=== PATIENT | male | born 1950 | race Caucasian/White ===

== ENCOUNTER 2021-11-21 13:15 | Inpatient (IN) | payer MEDICARE, OTHER ==
[2021-11-21 13:53] LABS: #Eosinphils 0.1 10x3/uL (0.0-0.5); #Monocytes 1.3 10x3/uL (0.0-1.1); #Neutrophils 7.9 10x3/uL (1.5-8.4); %Basophils 0.3 % (0.0-2.0); %Eosinophils 0.5 % (0.0-6.0); %Lymphocytes 14.5 % (18.0-47.0); %Monocytes 11.5 % (0.0-10.0); %Neutrophils 72.6 % (40.0-75.0); Hemoglobin 15.5 g/dL (13.5-17.5); Mean Corpuscular HGB CONC 33.2 g/dL (32.0-36.0); Mean Corpuscular Hemoglobin 32.6 pg (27.0-33.0); Mean Corpuscular Volume 98.3 fl (81.2-95.1); Mean Platelet Volume 10.6 fl (7.4-10.4); Platelet Count 88 10x3/uL (150-450); RBC Distribution Width 12.9 % (11.5-14.5); Red Blood Cell (RBC) Count 4.75 10x6/uL (4.32-5.72)
[2021-11-21 14:02] LABS: ALT (SGPT) 11 U/L (8-55); AST (SGOT) 15 U/L (5-34); Albumin 3.5 g/dL (3.4-4.8); Alkaline Phosphatase 99 U/L (40-110); Anion Gap 13 mmol/L (10-20); BUN (Urea Nitrogen) 14 mg/dL (8.4-25.7); Bilirubin, Total 1.3 mg/dL (0.2-1.2); CRP (Inflammatory) 6.35 mg/dL (= or < 0.5); Calc. Creatinine Clearance 0 mL/min (70-130); Calcium 9.4 mg/dL (7.8-10.44); Carbon Dioxide 30 mmol/L (23-31); Chloride 101 mmol/L (98-107); Globulin 2.8 g/dL (2.4-3.5); Glucose 107 mg/dL (80-115); Potassium 4.7 mmol/L (3.5-5.1); Protein, Total 6.3 g/dL (5.8-8.1); Sodium 139 mmol/L (136-145)
[2021-11-21] MEDS ORDERED: Cefepime 2 GM VIAL ONE (14:47)
[2021-11-21] MEDS ORDERED: Ondansetron ODT 4 MG TAB PO PRN (19:14)
[2021-11-21] MEDS ORDERED: Guaifenesin DM 100-10/5 ML UDCUP PO PRN (19:14)
[2021-11-21] MEDS ORDERED: Nicotine 14 MG PATCH TD PRN (19:14)
[2021-11-21] MEDS ORDERED: Acetaminophen 325 MG TAB PO PRN (19:14)
[2021-11-21] MEDS ORDERED: hydrALAZINE 20 MG/ML VIAL SLOW IVP PRN (19:19)
[2021-11-21] MEDS ORDERED: Albuterol Sulfate 2.5 mg/3 ml Neb NEB PRN (19:22)
[2021-11-21] MEDS ORDERED: traMADol HCl 50 MG TAB PO PRN (19:24)
[2021-11-21] MEDS ORDERED: Electrolyte Replacement Protocol 1 EACH FS SCH (19:30)
[2021-11-21 19:31] VITALS: BMI 44.3
[2021-11-21] MEDS ORDERED: Loratadine 10 MG TAB PO PRN (19:34)
[2021-11-21] MEDS ORDERED: Morphine 4 MG/ML VIAL SLOW IVP PRN (19:34)
[2021-11-21] MEDS ORDERED: Vancomycin HCl 1 GM in Sodium Chloride 0.9% 250 ML 250 ML IVPB SCH (19:45)
[2021-11-22] MEDS ORDERED: Vancomycin 1 GM in Premix Bag 1 BAG IVPB SCH (04:00)
[2021-11-22 05:09] LABS: #Eosinphils 0.2 10x3/uL (0.0-0.5); #Monocytes 1.1 10x3/uL (0.0-1.1); %Basophils 0.4 % (0.0-2.0); %Eosinophils 1.7 % (0.0-6.0); %Lymphocytes 19.2 % (18.0-47.0); %Monocytes 11.7 % (0.0-10.0); %Neutrophils 66.6 % (40.0-75.0); Hemoglobin 14.5 g/dL (13.5-17.5); Mean Corpuscular HGB CONC 33.6 g/dL (32.0-36.0); Mean Platelet Volume 11.6 fl (7.4-10.4); Platelet Count 86 10x3/uL (150-450); RBC Distribution Width 12.9 % (11.5-14.5)
[2021-11-22 05:13] LABS: Phosphorus 3.2 mg/dL (2.3-4.7)
[2021-11-22 05:28] LABS: Anion Gap 14 mmol/L (10-20); BUN (Urea Nitrogen) 14 mg/dL (8.4-25.7); Calc. Creatinine Clearance 172 mL/min (70-130); Calcium 8.9 mg/dL (7.8-10.44); Carbon Dioxide 25 mmol/L (23-31); Chloride 106 mmol/L (98-107); Glucose 100 mg/dL (80-115); Magnesium 1.9 mg/dL (1.6-2.6); Potassium 4.1 mmol/L (3.5-5.1); Sodium 141 mmol/L (136-145); Uric Acid 6.7 mg/dL (3.5-7.2)
[2021-11-22] MEDS ORDERED: Cefepime 2 GM in Sodium Chloride 0.9% 100 ML IVPB SCH (05:30)
[2021-11-22] MEDS ORDERED: Magnesium 2 GM/50 ML 2 GM in Premix Bag 1 BAG IVPB SCH ×2 (06:00→09:00)
[2021-11-22] MEDS ORDERED: Vancomycin 1.5 GRAM/300 ML BAG 1.5 GM in Premix Bag 1 BAG IVPB SCH (06:00)
[2021-11-22] MEDS: Mometasone/Formoterol 200/5 60 PUFF INH SCH ×2 (07:32→19:17)
[2021-11-22] MEDS: Potassium Chloride 20 MEQ TAB PO SCH (08:38)
[2021-11-22] MEDS: Furosemide 40 MG TAB PO SCH (08:38)
[2021-11-22] MEDS: Losartan Potassium 50 MG TAB PO SCH (08:38)
[2021-11-22] MEDS ORDERED: cefTRIAXone\\ROCEPHIN 2 GM in Sodium Chloride 0.9% 100 ML IVPB SCH (17:00)
[2021-11-22 18:09] LABS: SARS-CoV-2 PCR by NAA Not Detected (NotDetected)
[2021-11-22] MEDS: Naproxen 500 MG TAB PO SCH (23:04)
[2021-11-23 05:38] LABS: Anion Gap 14 mmol/L (10-20); BUN (Urea Nitrogen) 18 mg/dL (8.4-25.7); Calc. Creatinine Clearance 0 mL/min (70-130); Carbon Dioxide 26 mmol/L (23-31); Chloride 107 mmol/L (98-107); Glucose 115 mg/dL (80-115); Magnesium 2.1 mg/dL (1.6-2.6); Potassium 4.2 mmol/L (3.5-5.1); Sodium 143 mmol/L (136-145)
[2021-11-23 06:01] LABS: #Eosinphils 0.2 10x3/uL (0.0-0.5); #Neutrophils 6.1 10x3/uL (1.5-8.4); %Basophils 0.2 % (0.0-2.0); %Lymphocytes 16.2 % (18.0-47.0); %Monocytes 11.2 % (0.0-10.0); %Neutrophils 70.1 % (40.0-75.0); Hemoglobin 14.7 g/dL (13.5-17.5); Mean Corpuscular HGB CONC 33.6 g/dL (32.0-36.0); Mean Corpuscular Hemoglobin 32.7 pg (27.0-33.0); Mean Corpuscular Volume 97.3 fl (81.2-95.1); Mean Platelet Volume 10.6 fl (7.4-10.4); Platelet Count 83 10x3/uL (150-450); RBC Distribution Width 12.8 % (11.5-14.5); White Blood Cell (WBC) Count 8.7 10x3/uL (3.5-10.5)
[2021-11-23] MEDS: Mometasone/Formoterol 200/5 60 PUFF INH SCH ×2 (08:05→19:14)
[2021-11-23] MEDS: Losartan Potassium 50 MG TAB PO SCH (08:19)
[2021-11-23] MEDS: Potassium Chloride 20 MEQ TAB PO SCH (08:19)
[2021-11-23] MEDS: Furosemide 40 MG TAB PO SCH (08:19)
[2021-11-23] MEDS: Naproxen 500 MG TAB PO SCH ×2 (08:19→20:43)
[2021-11-24] MEDS: Mometasone/Formoterol 200/5 60 PUFF INH SCH (07:20)
[2021-11-24] MEDS: Potassium Chloride 20 MEQ TAB PO SCH (08:08)
[2021-11-24] MEDS: Losartan Potassium 50 MG TAB PO SCH (08:08)
[2021-11-24] MEDS: Naproxen 500 MG TAB PO SCH (08:08)
[2021-11-24] MEDS: Furosemide 40 MG TAB PO SCH (08:08)
[2021-11-24 12:48] VITALS: BP 137/89; TEMP 97.3
== END 2021-11-24 16:34 | disposition home or self-care (01) | DRG 554 ==
LOC: CSHERS 13:15 → INTOOBSV 18:33 → CSHTELE 18:33 → OBSVTOIN 11-22 12:09
PROVIDERS: ADMIT Hospitalist; ATTEND Hospitalist
PROC: 5A09357 Assistance with Respiratory Ventilation, Less than 24 Consecutive Hours, Continuous Positive Airway Pressure (ICD-10-PCS; principal; 2021-11-22)
DX: M10.9 Gout, unspecified (principal); L03.113 Cellulitis of right upper limb; J96.11 Chronic respiratory failure with hypoxia; I50.30 Unspecified diastolic (congestive) heart failure; Z68.41 Body mass index [BMI] 40.0-44.9, adult; J44.9 Chronic obstructive pulmonary disease, unspecified; G47.33 Obstructive sleep apnea (adult) (pediatric); I11.0 Hypertensive heart disease with heart failure; E66.01 Morbid (severe) obesity due to excess calories; F17.210 Nicotine dependence, cigarettes, uncomplicated; D69.6 Thrombocytopenia, unspecified; Z20.822 Contact with and (suspected) exposure to COVID-19; Z99.81 Dependence on supplemental oxygen
CPT/HCPCS: 36415; 71045; 80048; 80053; 83735; 84100; 84550; 85025; 86140; 87040; 94660; 94760; 96365; 96366; 96367; J0692; J0696; J2270; J3370; J3475; J3490; J7050; U0003; U0005

== ENCOUNTER 2022-02-06 11:23 | Inpatient (IN) | payer MEDICARE, OTHER ==
[~2022-02-06 11:23] MED LIST: Iopamidol 300 61% 100 ML VIAL FS ONE
[2022-02-06 12:33] LABS: #Monocytes 1.9 10x3/uL (0.0-1.1); #Neutrophils 14.6 10x3/uL (1.5-8.4); %Basophils 0.2 % (0.0-2.0); %Eosinophils 0.2 % (0.0-6.0); %Lymphocytes 5.9 % (18.0-47.0); %Monocytes 10.5 % (0.0-10.0); %Neutrophils 82.6 % (40.0-75.0); Hemoglobin 13.8 g/dL (13.5-17.5); Mean Corpuscular HGB CONC 34.5 g/dL (32.0-36.0); Mean Corpuscular Hemoglobin 32.2 pg (27.0-33.0); Mean Corpuscular Volume 93.5 fl (81.2-95.1); Mean Platelet Volume 10.4 fl (7.4-10.4); Platelet Count 126 10x3/uL (150-450); Red Blood Cell (RBC) Count 4.28 10x6/uL (4.32-5.72); White Blood Cell (WBC) Count 17.7 10x3/uL (3.5-10.5)
[2022-02-06] MEDS ORDERED: Cefepime 2 GM VIAL ONE (12:58)
[2022-02-06] MEDS ORDERED: VANCOMYCIN 2 GRAM/400 ML BAG 2 GM in Premix Bag 1 BAG IVPB SCH (13:15)
[2022-02-06] MEDS ORDERED: Morphine 4 MG/ML VIAL ONE (13:27)
[2022-02-06 14:00] LABS: INR-International Normal Ratio 1.5; PTT 26.9 sec (22.0-33.0); Prothrombin Time 15.5 sec (9.5-12.1)
[2022-02-06 14:26] LABS: ALT (SGPT) 15 U/L (8-55); AST (SGOT) 23 U/L (5-34); Albumin 2.7 g/dL (3.4-4.8); Alkaline Phosphatase 79 U/L (40-110); Anion Gap 13 mmol/L (10-20); BUN (Urea Nitrogen) 20 mg/dL (8.4-25.7); Calc. Creatinine Clearance 0 mL/min (70-130); Calcium 8.7 mg/dL (7.8-10.44); Carbon Dioxide 27 mmol/L (23-31); Chloride 100 mmol/L (98-107); Globulin 2.5 g/dL (2.4-3.5); Glucose 119 mg/dL (80-115); Potassium 4.6 mmol/L (3.5-5.1); Protein, Total 5.2 g/dL (5.8-8.1); Sodium 135 mmol/L (136-145)
[2022-02-06 15:07] LABS: SARS-CoV-2 NAA Rapid Test Not Detected (NotDetected)
[2022-02-06] MEDS ORDERED: Ondansetron ODT 4 MG TAB PO PRN (16:32)
[2022-02-06] MEDS ORDERED: Lidocaine 1% PF 5 ML VIAL FS SCH (17:00)
[2022-02-06] MEDS ORDERED: Midazolam HCl 2 mg/2 ml Vial SLOW IVP SCH (17:00)
[2022-02-06] MEDS ORDERED: Fentanyl 100 MCG/2 ML VIAL SLOW IVP SCH (17:00)
[2022-02-06] MEDS ORDERED: Piperacillin/Tazobactam 3.375 GM in Sodium Chloride 0.9% 100 ML IVPB SCH (18:00)
[2022-02-06] MEDS: Morphine 2 MG/ML VIAL SLOW IVP PRN (18:18)
[2022-02-06] MEDS: Budesonide 0.5 MG/2 ML NEB NEB SCH (20:10)
[2022-02-06] MEDS ORDERED: Vancomycin 1 GM in Premix Bag 1 BAG IVPB SCH (21:00)
[2022-02-06] MEDS: Piperacillin/Tazobactam 3.375 GM in Sodium Chloride 0.9% 100 ML IVPB SCH (21:22)
[2022-02-06] MEDS: Famotidine 20 MG TAB PO SCH (21:22)
[2022-02-07] MEDS: Vancomycin HCl 1.5 GM, Admixture Fee 1 EACH in Sodium Chloride 0.9% 500 ML IVPB SCH ×2 (02:10→14:22)
[2022-02-07 04:37] LABS: #Eosinphils 0.3 10x3/uL (0.0-0.5); #Monocytes 1.5 10x3/uL (0.0-1.1); #Neutrophils 10.7 10x3/uL (1.5-8.4); %Basophils 0.3 % (0.0-2.0); %Lymphocytes 11.4 % (18.0-47.0); %Monocytes 10.3 % (0.0-10.0); %Neutrophils 75.2 % (40.0-75.0); Hemoglobin 13.2 g/dL (13.5-17.5); Mean Corpuscular HGB CONC 34.5 g/dL (32.0-36.0); Mean Corpuscular Volume 95.8 fl (81.2-95.1); Mean Platelet Volume 10.6 fl (7.4-10.4); Platelet Count 113 10x3/uL (150-450); RBC Distribution Width 12.8 % (11.5-14.5); White Blood Cell (WBC) Count 14.3 10x3/uL (3.5-10.5)
[2022-02-07 04:43] LABS: ALT (SGPT) 16 U/L (8-55); AST (SGOT) 22 U/L (5-34); Albumin 2.6 g/dL (3.4-4.8); Alkaline Phosphatase 79 U/L (40-110); Anion Gap 12 mmol/L (10-20); BUN (Urea Nitrogen) 17 mg/dL (8.4-25.7); Bilirubin, Total 0.8 mg/dL (0.2-1.2); Calc. Creatinine Clearance 173 mL/min (70-130); Calcium 8.6 mg/dL (7.8-10.44); Carbon Dioxide 27 mmol/L (23-31); Chloride 103 mmol/L (98-107); Globulin 2.5 g/dL (2.4-3.5); Glucose 98 mg/dL (80-115); Protein, Total 5.1 g/dL (5.8-8.1); Sodium 138 mmol/L (136-145)
[2022-02-07] MEDS: Piperacillin/Tazobactam 3.375 GM in Sodium Chloride 0.9% 100 ML IVPB SCH ×3 (05:50→21:22)
[2022-02-07] MEDS: Morphine 2 MG/ML VIAL SLOW IVP PRN (05:58)
[2022-02-07] MEDS: Budesonide 0.5 MG/2 ML NEB NEB SCH ×2 (07:13→20:30)
[2022-02-07] MEDS: Famotidine 20 MG TAB PO SCH ×2 (08:57→21:21)
[2022-02-07] MEDS: Enoxaparin Sodium 40 MG/0.4 ML SYRINGE SC SCH (08:57)
[2022-02-07] MEDS ORDERED: Loratadine 10 MG TAB PO PRN (17:26)
[2022-02-07] MEDS: guaiFENesin ER 600 MG TAB PO SCH (21:22)
[2022-02-08 01:19] LABS: Vancomycin, Trough 16.2 ug/mL
[2022-02-08] MEDS: Vancomycin HCl 1.5 GM, Admixture Fee 1 EACH in Sodium Chloride 0.9% 500 ML IVPB SCH ×2 (02:27→13:00)
[2022-02-08 04:32] LABS: #Eosinphils 0.4 10x3/uL (0.0-0.5); #Monocytes 0.9 10x3/uL (0.0-1.1); %Basophils 0.3 % (0.0-2.0); %Eosinophils 3.6 % (0.0-6.0); %Lymphocytes 15.1 % (18.0-47.0); %Monocytes 9.1 % (0.0-10.0); Hemoglobin 12.9 g/dL (13.5-17.5); Mean Corpuscular Hemoglobin 33.1 pg (27.0-33.0); Mean Corpuscular Volume 97.2 fl (81.2-95.1); Mean Platelet Volume 10.4 fl (7.4-10.4); Platelet Count 128 10x3/uL (150-450); RBC Distribution Width 12.8 % (11.5-14.5); White Blood Cell (WBC) Count 9.9 10x3/uL (3.5-10.5)
[2022-02-08] MEDS: Morphine 2 MG/ML VIAL SLOW IVP PRN ×3 (04:35→16:35)
[2022-02-08 04:41] LABS: Anion Gap 14 mmol/L (10-20); BUN (Urea Nitrogen) 15 mg/dL (8.4-25.7); Calc. Creatinine Clearance 177 mL/min (70-130); Calcium 8.6 mg/dL (7.8-10.44); Carbon Dioxide 29 mmol/L (23-31); Chloride 105 mmol/L (98-107); Glucose 98 mg/dL (80-115); Potassium 4.6 mmol/L (3.5-5.1); Sodium 143 mmol/L (136-145)
[2022-02-08] MEDS: Piperacillin/Tazobactam 3.375 GM in Sodium Chloride 0.9% 100 ML IVPB SCH ×3 (05:35→21:57)
[2022-02-08] MEDS: guaiFENesin ER 600 MG TAB PO SCH ×2 (08:21→20:20)
[2022-02-08] MEDS: Enoxaparin Sodium 40 MG/0.4 ML SYRINGE SC SCH (08:21)
[2022-02-08] MEDS: Famotidine 20 MG TAB PO SCH ×2 (08:21→20:20)
[2022-02-08] MEDS: Budesonide 0.5 MG/2 ML NEB NEB SCH ×2 (08:26→19:02)
[2022-02-09] MEDS: Vancomycin HCl 1.5 GM, Admixture Fee 1 EACH in Sodium Chloride 0.9% 500 ML IVPB SCH (01:34)
[2022-02-09] MEDS: Piperacillin/Tazobactam 3.375 GM in Sodium Chloride 0.9% 100 ML IVPB SCH ×3 (05:21→20:59)
[2022-02-09] MEDS: Budesonide 0.5 MG/2 ML NEB NEB SCH ×2 (07:30→19:25)
[2022-02-09] MEDS: Famotidine 20 MG TAB PO SCH ×2 (08:19→20:59)
[2022-02-09] MEDS: guaiFENesin ER 600 MG TAB PO SCH ×2 (08:19→20:59)
[2022-02-09] MEDS: Enoxaparin Sodium 40 MG/0.4 ML SYRINGE SC SCH (08:19)
[2022-02-10] MEDS: Piperacillin/Tazobactam 3.375 GM in Sodium Chloride 0.9% 100 ML IVPB SCH ×3 (06:36→21:07)
[2022-02-10] MEDS: Budesonide 0.5 MG/2 ML NEB NEB SCH ×2 (07:30→19:40)
[2022-02-10] MEDS: Enoxaparin Sodium 40 MG/0.4 ML SYRINGE SC SCH (08:46)
[2022-02-10] MEDS: guaiFENesin ER 600 MG TAB PO SCH ×2 (08:46→21:07)
[2022-02-10] MEDS: Famotidine 20 MG TAB PO SCH ×2 (08:46→21:07)
[2022-02-10] MEDS: Morphine 2 MG/ML VIAL SLOW IVP PRN (14:02)
[2022-02-11] MEDS: Piperacillin/Tazobactam 3.375 GM in Sodium Chloride 0.9% 100 ML IVPB SCH ×3 (05:52→21:46)
[2022-02-11] MEDS: Budesonide 0.5 MG/2 ML NEB NEB SCH ×2 (07:40→19:25)
[2022-02-11] MEDS: guaiFENesin ER 600 MG TAB PO SCH ×2 (08:46→21:47)
[2022-02-11] MEDS: Enoxaparin Sodium 40 MG/0.4 ML SYRINGE SC SCH (08:46)
[2022-02-11] MEDS: Famotidine 20 MG TAB PO SCH ×2 (08:46→21:47)
[2022-02-11] MEDS ORDERED: Polyethylene Glycol 3350 17 GM Packet PO PRN (11:30)
[2022-02-11] MEDS: Polyethylene Glycol 3350 17 GM Packet PO SCH (21:37)
[2022-02-12 03:58] LABS: #Basophils 0.1 10x3/uL (0.0-0.2); #Eosinphils 0.2 10x3/uL (0.0-0.5); #Monocytes 0.9 10x3/uL (0.0-1.1); #Neutrophils 7.2 10x3/uL (1.5-8.4); %Basophils 0.5 % (0.0-2.0); %Eosinophils 2.5 % (0.0-6.0); %Lymphocytes 12.8 % (18.0-47.0); %Monocytes 9.1 % (0.0-10.0); %Neutrophils 74.4 % (40.0-75.0); Hemoglobin 13.3 g/dL (13.5-17.5); Mean Corpuscular HGB CONC 33.9 g/dL (32.0-36.0); Mean Corpuscular Hemoglobin 33.1 pg (27.0-33.0); Mean Corpuscular Volume 97.5 fl (81.2-95.1); Platelet Count 159 10x3/uL (150-450); RBC Distribution Width 12.4 % (11.5-14.5); Red Blood Cell (RBC) Count 4.02 10x6/uL (4.32-5.72); White Blood Cell (WBC) Count 9.6 10x3/uL (3.5-10.5)
[2022-02-12 04:11] LABS: Anion Gap 12 mmol/L (10-20); BUN (Urea Nitrogen) 9 mg/dL (8.4-25.7); Calc. Creatinine Clearance 173 mL/min (70-130); Calcium 9.2 mg/dL (7.8-10.44); Carbon Dioxide 30 mmol/L (23-31); Chloride 104 mmol/L (98-107); Glucose 115 mg/dL (80-115); Potassium 4.3 mmol/L (3.5-5.1); Sodium 142 mmol/L (136-145)
[2022-02-12] MEDS: Piperacillin/Tazobactam 3.375 GM in Sodium Chloride 0.9% 100 ML IVPB SCH ×3 (06:12→21:26)
[2022-02-12] MEDS: Budesonide 0.5 MG/2 ML NEB NEB SCH ×2 (07:41→19:20)
[2022-02-12] MEDS: guaiFENesin ER 600 MG TAB PO SCH ×2 (07:56→21:23)
[2022-02-12] MEDS: Famotidine 20 MG TAB PO SCH ×2 (07:56→21:24)
[2022-02-12] MEDS: Enoxaparin Sodium 40 MG/0.4 ML SYRINGE SC SCH (07:56)
[2022-02-12] MEDS: Polyethylene Glycol 3350 17 GM Packet PO SCH ×2 (08:00→21:21)
[2022-02-12] MEDS ORDERED: Polyethylene Glycol 3350 17 GM Packet PO SCH (09:00)
[2022-02-13 05:57] LABS: #Basophils 0.1 10x3/uL (0.0-0.2); #Eosinphils 0.2 10x3/uL (0.0-0.5); #Monocytes 0.9 10x3/uL (0.0-1.1); #Neutrophils 6.3 10x3/uL (1.5-8.4); %Basophils 0.6 % (0.0-2.0); %Eosinophils 2.7 % (0.0-6.0); %Lymphocytes 13.6 % (18.0-47.0); %Monocytes 10.4 % (0.0-10.0); %Neutrophils 71.7 % (40.0-75.0); Hemoglobin 13.7 g/dL (13.5-17.5); Mean Corpuscular HGB CONC 35.3 g/dL (32.0-36.0); Mean Corpuscular Hemoglobin 33.3 pg (27.0-33.0); Mean Corpuscular Volume 94.4 fl (81.2-95.1); Mean Platelet Volume 10.6 fl (7.4-10.4); Platelet Count 141 10x3/uL (150-450); RBC Distribution Width 12.7 % (11.5-14.5); Red Blood Cell (RBC) Count 4.11 10x6/uL (4.32-5.72); White Blood Cell (WBC) Count 8.8 10x3/uL (3.5-10.5)
[2022-02-13 06:02] LABS: Anion Gap 13 mmol/L (10-20); BUN (Urea Nitrogen) 9 mg/dL (8.4-25.7); Calc. Creatinine Clearance 171 mL/min (70-130); Calcium 8.4 mg/dL (7.8-10.44); Carbon Dioxide 26 mmol/L (23-31); Chloride 104 mmol/L (98-107); Glucose 111 mg/dL (80-115); Sodium 138 mmol/L (136-145)
[2022-02-13 06:08] LABS: Potassium 4.9 mmol/L (3.5-5.1)
[2022-02-13] MEDS: Piperacillin/Tazobactam 3.375 GM in Sodium Chloride 0.9% 100 ML IVPB SCH ×3 (06:08→21:04)
[2022-02-13] MEDS: Budesonide 0.5 MG/2 ML NEB NEB SCH ×2 (07:34→19:19)
[2022-02-13] MEDS: Enoxaparin Sodium 40 MG/0.4 ML SYRINGE SC SCH (08:51)
[2022-02-13] MEDS: Polyethylene Glycol 3350 17 GM Packet PO SCH ×2 (08:52→21:05)
[2022-02-13] MEDS: Famotidine 20 MG TAB PO SCH ×2 (08:52→21:06)
[2022-02-13] MEDS: guaiFENesin ER 600 MG TAB PO SCH ×2 (08:52→21:05)
[2022-02-13] MEDS ORDERED: Furosemide 40 MG TAB PO SCH (09:00)
[2022-02-13] MEDS: Losartan Potassium 50 MG TAB PO SCH (09:11)
[2022-02-13] MEDS: Morphine 2 MG/ML VIAL SLOW IVP PRN (10:34)
[2022-02-13] MEDS: Acetaminophen 325 MG TAB PO PRN (21:06)
[2022-02-14 04:19] VITALS: BMI 44.9
[2022-02-14 04:24] LABS: #Basophils 0.1 10x3/uL (0.0-0.2); #Eosinphils 0.3 10x3/uL (0.0-0.5); %Basophils 0.6 % (0.0-2.0); %Eosinophils 3.8 % (0.0-6.0); %Lymphocytes 20.2 % (18.0-47.0); %Monocytes 12.4 % (0.0-10.0); %Neutrophils 61.9 % (40.0-75.0); Hemoglobin 12.9 g/dL (13.5-17.5); Mean Corpuscular HGB CONC 33.9 g/dL (32.0-36.0); Mean Corpuscular Hemoglobin 32.8 pg (27.0-33.0); Mean Corpuscular Volume 96.7 fl (81.2-95.1); Mean Platelet Volume 10.2 fl (7.4-10.4); Platelet Count 165 10x3/uL (150-450); RBC Distribution Width 12.7 % (11.5-14.5); Red Blood Cell (RBC) Count 3.93 10x6/uL (4.32-5.72); White Blood Cell (WBC) Count 8.1 10x3/uL (3.5-10.5)
[2022-02-14 04:52] LABS: Anion Gap 12 mmol/L (10-20); BUN (Urea Nitrogen) 10 mg/dL (8.4-25.7); Calc. Creatinine Clearance 150 mL/min (70-130); Calcium 8.9 mg/dL (7.8-10.44); Carbon Dioxide 32 mmol/L (23-31); Chloride 104 mmol/L (98-107); Glucose 119 mg/dL (80-115); Potassium 4.1 mmol/L (3.5-5.1); Sodium 144 mmol/L (136-145)
[2022-02-14] MEDS: Piperacillin/Tazobactam 3.375 GM in Sodium Chloride 0.9% 100 ML IVPB SCH ×3 (05:32→20:44)
[2022-02-14] MEDS: Budesonide 0.5 MG/2 ML NEB NEB SCH ×2 (07:44→18:23)
[2022-02-14] MEDS: Enoxaparin Sodium 40 MG/0.4 ML SYRINGE SC SCH (08:52)
[2022-02-14] MEDS: Losartan Potassium 50 MG TAB PO SCH (08:53)
[2022-02-14] MEDS: Polyethylene Glycol 3350 17 GM Packet PO SCH ×2 (08:53→21:05)
[2022-02-14] MEDS: Famotidine 20 MG TAB PO SCH ×2 (08:53→20:45)
[2022-02-14] MEDS: guaiFENesin ER 600 MG TAB PO SCH ×2 (08:53→20:45)
[2022-02-14] MEDS: Acetaminophen 325 MG TAB PO PRN (20:45)
[2022-02-15] MEDS: Piperacillin/Tazobactam 3.375 GM in Sodium Chloride 0.9% 100 ML IVPB SCH (05:25)
[2022-02-15 05:49] LABS: Anion Gap 13 mmol/L (10-20); BUN (Urea Nitrogen) 10 mg/dL (8.4-25.7); Calc. Creatinine Clearance 169 mL/min (70-130); Calcium 8.9 mg/dL (7.8-10.44); Carbon Dioxide 31 mmol/L (23-31); Chloride 105 mmol/L (98-107); Glucose 103 mg/dL (80-115); Potassium 4.2 mmol/L (3.5-5.1); Sodium 145 mmol/L (136-145)
[2022-02-15 06:03] LABS: #Basophils 0.1 10x3/uL (0.0-0.2); #Eosinphils 0.3 10x3/uL (0.0-0.5); #Monocytes 0.7 10x3/uL (0.0-1.1); #Neutrophils 3.9 10x3/uL (1.5-8.4); %Basophils 0.8 % (0.0-2.0); %Eosinophils 3.8 % (0.0-6.0); %Lymphocytes 24.4 % (18.0-47.0); %Monocytes 11.3 % (0.0-10.0); %Neutrophils 59.1 % (40.0-75.0); Hemoglobin 12.7 g/dL (13.5-17.5); Mean Corpuscular HGB CONC 33.1 g/dL (32.0-36.0); Mean Corpuscular Hemoglobin 32.6 pg (27.0-33.0); Mean Corpuscular Volume 98.7 fl (81.2-95.1); Mean Platelet Volume 10.5 fl (7.4-10.4); Platelet Count 169 10x3/uL (150-450); RBC Distribution Width 12.7 % (11.5-14.5); Red Blood Cell (RBC) Count 3.89 10x6/uL (4.32-5.72); White Blood Cell (WBC) Count 6.5 10x3/uL (3.5-10.5)
[2022-02-15] MEDS: Budesonide 0.5 MG/2 ML NEB NEB SCH (08:05)
[2022-02-15] MEDS: Enoxaparin Sodium 40 MG/0.4 ML SYRINGE SC SCH (09:03)
[2022-02-15] MEDS: Polyethylene Glycol 3350 17 GM Packet PO SCH (09:03)
[2022-02-15] MEDS: Famotidine 20 MG TAB PO SCH (09:03)
[2022-02-15] MEDS: Losartan Potassium 50 MG TAB PO SCH (09:03)
[2022-02-15] MEDS: guaiFENesin ER 600 MG TAB PO SCH (09:03)
[2022-02-15] MEDS: Morphine 2 MG/ML VIAL SLOW IVP PRN (09:21)
[2022-02-15 12:49] VITALS: BP 140/69; TEMP 98.1
== END 2022-02-15 15:25 | DRG 728 ==
LOC: CSHERS 11:23 → CSHIMCU 15:45 → CSHTELE 02-09 11:24
PROVIDERS: ADMIT Internal Medicine; ATTEND Hospitalist
PROC: 0J9B0ZZ Drainage of Perineum Subcutaneous Tissue and Fascia, Open Approach (ICD-10-PCS; principal; 2022-02-06)
DX: N49.2 Inflammatory disorders of scrotum (principal); Z68.41 Body mass index [BMI] 40.0-44.9, adult; I50.32 Chronic diastolic (congestive) heart failure; L02.215 Cutaneous abscess of perineum; J44.9 Chronic obstructive pulmonary disease, unspecified; E66.01 Morbid (severe) obesity due to excess calories; G47.33 Obstructive sleep apnea (adult) (pediatric); I11.0 Hypertensive heart disease with heart failure; F17.210 Nicotine dependence, cigarettes, uncomplicated; J30.9 Allergic rhinitis, unspecified; R79.1 Abnormal coagulation profile; L72.8 Other follicular cysts of the skin and subcutaneous tissue; I35.0 Nonrheumatic aortic (valve) stenosis; I27.81 Cor pulmonale (chronic); M17.12 Unilateral primary osteoarthritis, left knee; Z20.822 Contact with and (suspected) exposure to COVID-19; Z79.899 Other long term (current) drug therapy; Z71.6 Tobacco abuse counseling; Z98.890 Other specified postprocedural states; Z82.49 Family history of ischemic heart disease and other diseases of the circulatory system; Z80.8 Family history of malignant neoplasm of other organs or systems
CPT/HCPCS: 36415; 36416; 72193; 80048; 80053; 80202; 83605; 83880; 84484; 85025; 85610; 85730; 87040; 87070; 87077; 87186; 87205; 93005; 93010; 93306; 94660; 94760; 96365; 96366; 96375; J0692; J1650; J2250; J2270; J2543; J3010; J3370; J3490; J7030; J7620; J7626; Q0162; Q9967; U0002; U0003; U0005

== ENCOUNTER 2022-04-18 14:03 | Inpatient (IN) | payer MEDICARE, OTHER ==
[2022-04-18 14:38] LABS: #Basophils 0.1 10x3/uL (0.0-0.2); #Eosinphils 0.4 10x3/uL (0.0-0.5); #Monocytes 1.1 10x3/uL (0.0-1.1); #Neutrophils 8.2 10x3/uL (1.5-8.4); %Basophils 0.4 % (0.0-2.0); %Eosinophils 3.2 % (0.0-6.0); %Lymphocytes 13.9 % (18.0-47.0); %Monocytes 9.7 % (0.0-10.0); %Neutrophils 72.3 % (40.0-75.0); Hemoglobin 13.7 g/dL (13.5-17.5); Mean Corpuscular HGB CONC 33.8 g/dL (32.0-36.0); Mean Corpuscular Hemoglobin 33.5 pg (27.0-33.0); Mean Platelet Volume 10.3 fl (7.4-10.4); Platelet Count 141 10x3/uL (150-450); RBC Distribution Width 13.2 % (11.5-14.5); Red Blood Cell (RBC) Count 4.09 10x6/uL (4.32-5.72); White Blood Cell (WBC) Count 11.3 10x3/uL (3.5-10.5)
[2022-04-18] MEDS ORDERED: Cefepime 2 GM VIAL ONE (14:50)
[2022-04-18 14:54] LABS: ALT (SGPT) 14 U/L (8-55); AST (SGOT) 21 U/L (5-34); Albumin 3.1 g/dL (3.4-4.8); Alkaline Phosphatase 94 U/L (40-110); Anion Gap 14 mmol/L (10-20); BUN (Urea Nitrogen) 32 mg/dL (8.4-25.7); Bilirubin, Total 0.5 mg/dL (0.2-1.2); Calc. Creatinine Clearance 0 mL/min (70-130); Calcium 9.2 mg/dL (7.8-10.44); Carbon Dioxide 28 mmol/L (23-31); Chloride 99 mmol/L (98-107); Estimated GFR 76; Globulin 2.6 g/dL (2.4-3.5); Glucose 160 mg/dL (83-110); Potassium 4.5 mmol/L (3.5-5.1); Protein, Total 5.7 g/dL (5.8-8.1); Sodium 136 mmol/L (136-145)
[2022-04-18 14:56] LABS: Actual Bicarbonate (HCO3v) 26 mEq/L (22-28); Base Excess 1.2 mEq/L (-2.0 to +3.0); Calcium, Ionized (venous) 1.18 mmol/L (1.16-1.32); Chloride (VBG) 101 mmol/L (98-106); Hemoglobin (Hb) 14.2 g/dL (12.6-17.4); Potassium (VBG) 4.22 mmol/L (3.70-5.30); Puncture Site Other Site; RapidComm Collect By LAB.CB1; Sodium 132.2 mmol/L (133-146); pH (venous) 7.42 (7.32-7.43)
[2022-04-18 15:58] LABS: SARS-CoV-2 NAA Rapid Test Not Detected (NotDetected)
[2022-04-18 18:39] LABS: Lactic Acid 1.5 mmol/L (0.5-2.2)
[2022-04-18 19:59] LABS: Bilirubin Neg (Negative); Blood, Urine 250 (Negative); Clarity Clear (Clear); Glucose, Urine (Dipstick) Normal (Negative); Ketone, Urine Negative (Negative); Leukocyte 100 (Negative); Nitrite Negative (Negative); Protein, Urine (Dipstick) 15 mg/dl (Neg-Trace); Urobilinogen Normal mg/dL (Less than 2)
[2022-04-18 20:11] LABS: Bacteria/HPF 1+ HPF (None Seen); RBC/HPF 21-50 HPF (0-3); Squamous Epithelial 0-3 HPF (0-3); WBC/HPF 0-3 HPF (0-3)
[2022-04-18] MEDS ORDERED: Acetaminophen 325 MG TAB PO PRN (20:21)
[2022-04-18] MEDS ORDERED: Calcium Carbonate 500 MG ChewTAB PO PRN (20:21)
[2022-04-18] MEDS ORDERED: HYDROcodone/Acetaminophen 5/325 mg Tablet PO PRN (20:21)
[2022-04-18] MEDS ORDERED: Ondansetron PF 4 MG/2 ML Vial IVP PRN (20:21)
[2022-04-18] MEDS ORDERED: Senokot S 8.6-50 MG TAB PO PRN (20:21)
[2022-04-18] MEDS ORDERED: Guaifenesin DM 100-10/5 ML UDCUP PO PRN (20:21)
[2022-04-18 20:47] VITALS: BMI 44.4
[2022-04-18] MEDS: Nicotine 21 MG PATCH TD SCH (20:57)
[2022-04-18] MEDS: Famotidine 20 MG TAB PO SCH (20:57)
[2022-04-18] MEDS ORDERED: Meropenem 1 GM in Sodium Chloride 0.9% 100 ML IVPB SCH (22:00)
[2022-04-18] MEDS ORDERED: Piperacillin/Tazobactam 3.375 GM in Sodium Chloride 0.9% 100 ML IVPB SCH (23:59)
[2022-04-19] MEDS: Vancomycin 1.5 GRAM/300 ML BAG 1.5 GM in Premix Bag 1 BAG IVPB SCH ×2 (04:00→16:31)
[2022-04-19 05:25] LABS: Anion Gap 10 mmol/L (10-20); BUN (Urea Nitrogen) 22 mg/dL (8.4-25.7); CRP (Inflammatory) 9.46 mg/dL (= or < 0.5); Calc. Creatinine Clearance 166 mL/min (70-130); Calcium 9.1 mg/dL (7.8-10.44); Carbon Dioxide 29 mmol/L (23-31); Chloride 104 mmol/L (98-107); Estimated GFR 95; Glucose 110 mg/dL (83-110); Potassium 4.4 mmol/L (3.5-5.1); Sodium 139 mmol/L (136-145)
[2022-04-19 05:27] LABS: #Basophils 0.1 10x3/uL (0.0-0.2); #Eosinphils 0.5 10x3/uL (0.0-0.5); #Monocytes 1.1 10x3/uL (0.0-1.1); %Basophils 0.6 % (0.0-2.0); %Eosinophils 5.4 % (0.0-6.0); %Lymphocytes 19.8 % (18.0-47.0); %Monocytes 11.4 % (0.0-10.0); %Neutrophils 62.3 % (40.0-75.0); Mean Corpuscular HGB CONC 33.7 g/dL (32.0-36.0); Mean Corpuscular Hemoglobin 33.2 pg (27.0-33.0); Mean Corpuscular Volume 98.5 fl (81.2-95.1); Mean Platelet Volume 10.2 fl (7.4-10.4); Platelet Count 123 10x3/uL (150-450); RBC Distribution Width 13.3 % (11.5-14.5); Red Blood Cell (RBC) Count 3.92 10x6/uL (4.32-5.72); White Blood Cell (WBC) Count 9.6 10x3/uL (3.5-10.5)
[2022-04-19] MEDS: Furosemide 20 MG/2 ML VIAL SLOW IVP SCH ×2 (05:54→16:24)
[2022-04-19] MEDS ORDERED: Acetaminophen 325 MG TAB PO PRN (06:41)
[2022-04-19] MEDS: Meropenem 1 GM in Sodium Chloride 0.9% 100 ML IVPB SCH ×3 (06:43→22:24)
[2022-04-19] MEDS: Mometasone/Formoterol 200/5 60 PUFF INH SCH ×2 (08:22→19:55)
[2022-04-19] MEDS ORDERED: Ascorbic Acid 500 mg Chewable Tablet ONE (09:42)
[2022-04-19] MEDS: Cholecalciferol 1,000 UNITS (25 MCG) TAB PO SCH (10:52)
[2022-04-19] MEDS: Ascorbic Acid 500 mg Chewable Tablet PO SCH (10:53)
[2022-04-19] MEDS: Famotidine 20 MG TAB PO SCH ×2 (10:53→21:27)
[2022-04-19] MEDS: Ubidecarenone 50 MG CAP PO SCH (10:53)
[2022-04-19] MEDS: Losartan Potassium 50 MG TAB PO SCH (10:54)
[2022-04-19] MEDS: Enoxaparin Sodium 40 MG/0.4 ML SYRINGE SC SCH (10:54)
[2022-04-19] MEDS: Polyethylene Glycol 3350 17 GM Packet PO SCH (11:03)
[2022-04-19 12:40] LABS: Hemoglobin A1c 5.4 % (4.0-6.0)
[2022-04-19] MEDS ORDERED: Diclofenac 1% 100 GM GEL TP PRN (14:00)
[2022-04-19] MEDS ORDERED: Lidocaine 2% Jelly 5 ML TUBE TOP PRN (14:00)
[2022-04-19] MEDS: Nicotine 21 MG PATCH TD SCH (21:27)
[2022-04-20 03:46] LABS: Vancomycin, Trough 20.4 ug/mL
[2022-04-20] MEDS: Vancomycin 1.5 GRAM/300 ML BAG 1.5 GM in Premix Bag 1 BAG IVPB SCH (04:25)
[2022-04-20] MEDS: Meropenem 1 GM in Sodium Chloride 0.9% 100 ML IVPB SCH ×2 (06:52→14:21)
[2022-04-20] MEDS: Mometasone/Formoterol 200/5 60 PUFF INH SCH ×2 (07:00→19:48)
[2022-04-20] MEDS: Furosemide 20 MG/2 ML VIAL SLOW IVP SCH ×2 (07:35→14:21)
[2022-04-20] MEDS: Levothyroxine Sodium 50 MCG TAB PO SCH (07:35)
[2022-04-20] MEDS: Enoxaparin Sodium 40 MG/0.4 ML SYRINGE SC SCH (10:50)
[2022-04-20] MEDS: Cholecalciferol 1,000 UNITS (25 MCG) TAB PO SCH (10:51)
[2022-04-20] MEDS: Ascorbic Acid 500 mg Chewable Tablet PO SCH (10:51)
[2022-04-20] MEDS: Famotidine 20 MG TAB PO SCH ×2 (10:51→21:36)
[2022-04-20] MEDS: Polyethylene Glycol 3350 17 GM Packet PO SCH (10:52)
[2022-04-20] MEDS: Losartan Potassium 50 MG TAB PO SCH (10:52)
[2022-04-20] MEDS: Ubidecarenone 50 MG CAP PO SCH (10:52)
[2022-04-20] MEDS: VANCOMYCIN 1.25 GM/250 ML BAG 1.25 GM in Premix Bag 1 BAG IVPB SCH (18:41)
[2022-04-20] MEDS: Nicotine 21 MG PATCH TD SCH (21:36)
[2022-04-21] MEDS: Meropenem 1 GM in Sodium Chloride 0.9% 100 ML IVPB SCH ×3 (00:08→15:36)
[2022-04-21] MEDS: Furosemide 20 MG/2 ML VIAL SLOW IVP SCH ×2 (05:22→15:32)
[2022-04-21] MEDS: Levothyroxine Sodium 50 MCG TAB PO SCH (05:22)
[2022-04-21] MEDS: VANCOMYCIN 1.25 GM/250 ML BAG 1.25 GM in Premix Bag 1 BAG IVPB SCH (05:22)
[2022-04-21] MEDS: Enoxaparin Sodium 40 MG/0.4 ML SYRINGE SC SCH (09:24)
[2022-04-21] MEDS: Losartan Potassium 50 MG TAB PO SCH (09:24)
[2022-04-21] MEDS: Ascorbic Acid 500 mg Chewable Tablet PO SCH (09:24)
[2022-04-21] MEDS: Cholecalciferol 1,000 UNITS (25 MCG) TAB PO SCH (09:24)
[2022-04-21] MEDS: Polyethylene Glycol 3350 17 GM Packet PO SCH ×2 (09:24→15:57)
[2022-04-21] MEDS: Famotidine 20 MG TAB PO SCH ×2 (09:24→20:39)
[2022-04-21] MEDS: Ubidecarenone 50 MG CAP PO SCH (09:24)
[2022-04-21] MEDS: Mometasone/Formoterol 200/5 60 PUFF INH SCH ×2 (10:20→19:05)
[2022-04-21 15:32] LABS: Vancomycin, Trough 23.7 ug/mL
[2022-04-21] MEDS ORDERED: VANCOMYCIN 1.25 GM/250 ML BAG 1.25 GM in Premix Bag 1 BAG IVPB SCH (20:00)
[2022-04-21] MEDS ORDERED: Vancomycin HCl 1 GM in Sodium Chloride 0.9% 250 ML 250 ML IVPB SCH (20:00)
[2022-04-21] MEDS: Vancomycin HCl 750 MG in Sodium Chloride 0.9% 250 ML 250 ML IVPB SCH (20:39)
[2022-04-21] MEDS: Nicotine 21 MG PATCH TD SCH (20:53)
[2022-04-22] MEDS: Meropenem 1 GM in Sodium Chloride 0.9% 100 ML IVPB SCH ×2 (01:34→09:55)
[2022-04-22] MEDS: Levothyroxine Sodium 50 MCG TAB PO SCH (06:06)
[2022-04-22] MEDS: Furosemide 20 MG/2 ML VIAL SLOW IVP SCH ×2 (06:06→15:05)
[2022-04-22] MEDS: Mometasone/Formoterol 200/5 60 PUFF INH SCH ×2 (09:02→19:15)
[2022-04-22] MEDS: Famotidine 20 MG TAB PO SCH ×2 (09:49→21:10)
[2022-04-22] MEDS: Ascorbic Acid 500 mg Chewable Tablet PO SCH (09:49)
[2022-04-22] MEDS: Cholecalciferol 1,000 UNITS (25 MCG) TAB PO SCH (09:49)
[2022-04-22] MEDS: Enoxaparin Sodium 40 MG/0.4 ML SYRINGE SC SCH (09:49)
[2022-04-22] MEDS: Losartan Potassium 50 MG TAB PO SCH (09:49)
[2022-04-22] MEDS: Ubidecarenone 50 MG CAP PO SCH (09:49)
[2022-04-22] MEDS: Polyethylene Glycol 3350 17 GM Packet PO SCH (09:50)
[2022-04-22] MEDS: Vancomycin HCl 750 MG in Sodium Chloride 0.9% 250 ML 250 ML IVPB SCH (09:57)
[2022-04-22 13:44] LABS: ALT (SGPT) 14 U/L (8-55); AST (SGOT) 17 U/L (5-34); Albumin 2.6 g/dL (3.4-4.8); Alkaline Phosphatase 81 U/L (40-110); Anion Gap 9 mmol/L (10-20); BUN (Urea Nitrogen) 15 mg/dL (8.4-25.7); Bilirubin, Total 0.3 mg/dL (0.2-1.2); Calc. Creatinine Clearance 75 mL/min (70-130); Calcium 8.6 mg/dL (7.8-10.44); Carbon Dioxide 30 mmol/L (23-31); Chloride 105 mmol/L (98-107); Estimated GFR 96; Globulin 2.6 g/dL (2.4-3.5); Glucose 133 mg/dL (83-110); Phosphorus 2.8 mg/dL (2.3-4.7); Potassium 4.3 mmol/L (3.5-5.1); Protein, Total 5.2 g/dL (5.8-8.1); Sodium 140 mmol/L (136-145)
[2022-04-22 13:47] LABS: #Basophils 0.1 10x3/uL (0.0-0.2); #Eosinphils 0.3 10x3/uL (0.0-0.5); #Monocytes 0.8 10x3/uL (0.0-1.1); #Neutrophils 6.4 10x3/uL (1.5-8.4); %Basophils 0.6 % (0.0-2.0); %Eosinophils 3.3 % (0.0-6.0); %Lymphocytes 15.7 % (18.0-47.0); %Monocytes 8.9 % (0.0-10.0); %Neutrophils 70.7 % (40.0-75.0); Hemoglobin 12.6 g/dL (13.5-17.5); Mean Corpuscular HGB CONC 32.8 g/dL (32.0-36.0); Mean Corpuscular Hemoglobin 32.7 pg (27.0-33.0); Mean Corpuscular Volume 99.7 fl (81.2-95.1); Platelet Count 138 10x3/uL (150-450); RBC Distribution Width 13.2 % (11.5-14.5); Red Blood Cell (RBC) Count 3.85 10x6/uL (4.32-5.72); White Blood Cell (WBC) Count 9.1 10x3/uL (3.5-10.5)
[2022-04-22] MEDS: Nicotine 21 MG PATCH TD SCH (21:10)
[2022-04-22] MEDS: metroNIDAZOLE 500 MG TAB PO SCH (21:10)
[2022-04-23 05:05] LABS: #Eosinphils 0.4 10x3/uL (0.0-0.5); #Monocytes 0.8 10x3/uL (0.0-1.1); #Neutrophils 5.1 10x3/uL (1.5-8.4); %Basophils 0.5 % (0.0-2.0); %Eosinophils 4.6 % (0.0-6.0); %Lymphocytes 19.7 % (18.0-47.0); %Monocytes 10.1 % (0.0-10.0); %Neutrophils 64.6 % (40.0-75.0); Hemoglobin 12.2 g/dL (13.5-17.5); Mean Corpuscular HGB CONC 33.8 g/dL (32.0-36.0); Mean Corpuscular Hemoglobin 32.9 pg (27.0-33.0); Mean Corpuscular Volume 97.3 fl (81.2-95.1); Mean Platelet Volume 9.9 fl (7.4-10.4); Platelet Count 137 10x3/uL (150-450); RBC Distribution Width 13.2 % (11.5-14.5); Red Blood Cell (RBC) Count 3.71 10x6/uL (4.32-5.72); White Blood Cell (WBC) Count 7.9 10x3/uL (3.5-10.5)
[2022-04-23 05:32] LABS: ALT (SGPT) 16 U/L (8-55); AST (SGOT) 18 U/L (5-34); Albumin 2.6 g/dL (3.4-4.8); Alkaline Phosphatase 104 U/L (40-110); Anion Gap 9 mmol/L (10-20); BUN (Urea Nitrogen) 16 mg/dL (8.4-25.7); Bilirubin, Total 0.2 mg/dL (0.2-1.2); Calc. Creatinine Clearance 75 mL/min (70-130); Calcium 8.7 mg/dL (7.8-10.44); Carbon Dioxide 27 mmol/L (23-31); Chloride 110 mmol/L (98-107); Estimated GFR 96; Globulin 2.5 g/dL (2.4-3.5); Glucose 152 mg/dL (83-110); Potassium 4.1 mmol/L (3.5-5.1); Protein, Total 5.1 g/dL (5.8-8.1); Sodium 142 mmol/L (136-145)
[2022-04-23] MEDS: Levothyroxine Sodium 50 MCG TAB PO SCH (06:23)
[2022-04-23] MEDS: Furosemide 20 MG/2 ML VIAL SLOW IVP SCH ×2 (06:23→15:39)
[2022-04-23] MEDS: Enoxaparin Sodium 40 MG/0.4 ML SYRINGE SC SCH (09:47)
[2022-04-23] MEDS: Losartan Potassium 50 MG TAB PO SCH (09:48)
[2022-04-23] MEDS: metroNIDAZOLE 500 MG TAB PO SCH ×3 (09:48→21:39)
[2022-04-23] MEDS: Cholecalciferol 1,000 UNITS (25 MCG) TAB PO SCH (09:48)
[2022-04-23] MEDS: Polyethylene Glycol 3350 17 GM Packet PO SCH (09:48)
[2022-04-23] MEDS: Ascorbic Acid 500 mg Chewable Tablet PO SCH (09:48)
[2022-04-23] MEDS: Famotidine 20 MG TAB PO SCH ×2 (09:48→21:39)
[2022-04-23] MEDS: Ubidecarenone 50 MG CAP PO SCH (09:48)
[2022-04-23] MEDS: Mometasone/Formoterol 200/5 60 PUFF INH SCH ×2 (11:18→19:20)
[2022-04-23] MEDS: Nicotine 21 MG PATCH TD SCH (21:40)
[2022-04-24 06:35] LABS: #Basophils 0.1 10x3/uL (0.0-0.2); #Eosinphils 0.3 10x3/uL (0.0-0.5); #Neutrophils 5.9 10x3/uL (1.5-8.4); %Basophils 0.6 % (0.0-2.0); %Neutrophils 68.8 % (40.0-75.0); Hemoglobin 12.5 g/dL (13.5-17.5); Mean Corpuscular HGB CONC 33.4 g/dL (32.0-36.0); Mean Corpuscular Hemoglobin 33.3 pg (27.0-33.0); Mean Corpuscular Volume 99.7 fl (81.2-95.1); Mean Platelet Volume 9.6 fl (7.4-10.4); Platelet Count 138 10x3/uL (150-450); RBC Distribution Width 13.1 % (11.5-14.5); Red Blood Cell (RBC) Count 3.75 10x6/uL (4.32-5.72); White Blood Cell (WBC) Count 8.6 10x3/uL (3.5-10.5)
[2022-04-24] MEDS: Furosemide 20 MG/2 ML VIAL SLOW IVP SCH ×2 (06:41→14:17)
[2022-04-24] MEDS: Levothyroxine Sodium 50 MCG TAB PO SCH (06:41)
[2022-04-24 06:47] LABS: ALT (SGPT) 16 U/L (8-55); AST (SGOT) 14 U/L (5-34); Albumin 2.6 g/dL (3.4-4.8); Alkaline Phosphatase 98 U/L (40-110); Anion Gap 11 mmol/L (10-20); BUN (Urea Nitrogen) 15 mg/dL (8.4-25.7); Bilirubin, Total 0.3 mg/dL (0.2-1.2); Calc. Creatinine Clearance 171 mL/min (70-130); Calcium 8.7 mg/dL (7.8-10.44); Carbon Dioxide 28 mmol/L (23-31); Chloride 107 mmol/L (98-107); Estimated GFR 97; Globulin 2.6 g/dL (2.4-3.5); Glucose 137 mg/dL (83-110); Potassium 4.1 mmol/L (3.5-5.1); Protein, Total 5.2 g/dL (5.8-8.1); Sodium 142 mmol/L (136-145)
[2022-04-24] MEDS: Mometasone/Formoterol 200/5 60 PUFF INH SCH (07:08)
[2022-04-24] MEDS: Losartan Potassium 50 MG TAB PO SCH (09:03)
[2022-04-24] MEDS: Cholecalciferol 1,000 UNITS (25 MCG) TAB PO SCH (09:03)
[2022-04-24] MEDS: Ubidecarenone 50 MG CAP PO SCH (09:03)
[2022-04-24] MEDS: Ascorbic Acid 500 mg Chewable Tablet PO SCH (09:03)
[2022-04-24] MEDS: Enoxaparin Sodium 40 MG/0.4 ML SYRINGE SC SCH (09:04)
[2022-04-24] MEDS: Famotidine 20 MG TAB PO SCH (09:04)
[2022-04-24] MEDS: Polyethylene Glycol 3350 17 GM Packet PO SCH (09:05)
[2022-04-24] MEDS: metroNIDAZOLE 500 MG TAB PO SCH ×2 (09:06→14:17)
[2022-04-24 12:43] VITALS: BP 150/103; TEMP 97.4
== END 2022-04-24 15:40 | disposition home health service (06) | DRG 871 ==
LOC: CSHERS 14:03 → CSHTELE 20:06
PROVIDERS: ADMIT Student in an Organized Health Care Education/Training Program; ATTEND Family Medicine
PROC: 3E03329 Introduction of Other Anti-infective into Peripheral Vein, Percutaneous Approach (ICD-10-PCS; principal; 2022-04-18)
PROC: 0VJ80ZZ Inspection of Scrotum and Tunica Vaginalis, Open Approach (ICD-10-PCS; 2022-04-18)
DX: A41.9 Sepsis, unspecified organism (principal); I50.33 Acute on chronic diastolic (congestive) heart failure; Z68.41 Body mass index [BMI] 40.0-44.9, adult; C64.1 Malignant neoplasm of right kidney, except renal pelvis; I47.2 Ventricular tachycardia; J44.9 Chronic obstructive pulmonary disease, unspecified; I11.0 Hypertensive heart disease with heart failure; Z20.822 Contact with and (suspected) exposure to COVID-19; N49.2 Inflammatory disorders of scrotum; F17.210 Nicotine dependence, cigarettes, uncomplicated; M19.90 Unspecified osteoarthritis, unspecified site; G47.33 Obstructive sleep apnea (adult) (pediatric); E66.01 Morbid (severe) obesity due to excess calories; Z99.81 Dependence on supplemental oxygen; Z79.51 Long term (current) use of inhaled steroids; Z98.890 Other specified postprocedural states; Z79.899 Other long term (current) drug therapy
CPT/HCPCS: 36415; 72192; 74177; 80048; 80053; 80202; 81003; 81015; 82565; 82805; 83036; 83605; 83735; 83880; 84100; 84145; 84484; 84520; 85025; 86140; 87040; 87070; 87077; 87086; 87205; 93005; 93010; 93970; 94640; 94664; 94760; 96365; 96366; 96367; 97139; J0692; J1650; J1940; J2185; J3370; J3490; J7050; J7620; Q9967

== ENCOUNTER 2022-12-23 12:46 | Inpatient (IN) | payer MEDICARE, OTHER ==
[2022-12-23 13:35] LABS: #Eosinphils 0.4 10x3/uL (0.0-0.5); #Neutrophils 8.1 10x3/uL (1.5-8.4); %Basophils 0.3 % (0.0-2.0); %Eosinophils 3.2 % (0.0-6.0); %Lymphocytes 14.4 % (18.0-47.0); %Neutrophils 72.5 % (40.0-75.0); Hemoglobin 13.6 g/dL (13.5-17.5); Mean Corpuscular HGB CONC 33.4 g/dL (32.0-36.0); Mean Corpuscular Volume 98.8 fl (81.2-95.1); Mean Platelet Volume 10.7 fl (7.4-10.4); Platelet Count 128 10x3/uL (150-450); RBC Distribution Width 12.8 % (11.5-14.5); Red Blood Cell (RBC) Count 4.12 10x6/uL (4.32-5.72); White Blood Cell (WBC) Count 11.1 10x3/uL (3.5-10.5)
[2022-12-23 13:37] LABS: ALT (SGPT) 15 U/L (8-55); AST (SGOT) 18 U/L (5-34); Albumin 3.5 g/dL (3.4-4.8); Alkaline Phosphatase 90 U/L (40-110); Anion Gap 15 mmol/L (10-20); BUN (Urea Nitrogen) 14 mg/dL (8.4-25.7); Bilirubin, Total 0.7 mg/dL (0.2-1.2); Calc. Creatinine Clearance 0 mL/min (70-130); Calcium 9.6 mg/dL (7.8-10.44); Carbon Dioxide 28 mmol/L (23-31); Chloride 103 mmol/L (98-107); Estimated GFR 67; Globulin 3.2 g/dL (2.4-3.5); Glucose 114 mg/dL (83-110); Potassium 4.8 mmol/L (3.5-5.1); Protein, Total 6.7 g/dL (5.8-8.1); Sodium 141 mmol/L (136-145)
[2022-12-23] MEDS ORDERED: Cefepime 2 GM VIAL ONE ×2 (13:48→21:37)
[2022-12-23] MEDS ORDERED: VANCOMYCIN 1.75 GM/350 ML BAG 1.75 GM in Premix Bag 1 BAG IVPB SCH (14:00)
[2022-12-23 14:17] LABS: Platelet Morphology Comment PLT clumps seen-LOW; RBC Morphology Normal
[2022-12-23 16:25] LABS: Lactic Acid 1.9 mmol/L (0.5-2.2)
[2022-12-23] MEDS ORDERED: Ondansetron PF 4 MG/2 ML Vial IVP PRN (16:39)
[2022-12-23] MEDS ORDERED: Ondansetron ODT 4 MG TAB PO PRN (16:39)
[2022-12-23] MEDS ORDERED: HYDROcodone/Acetaminophen 5/325 mg Tablet PO PRN (16:39)
[2022-12-23 18:09] LABS: Bilirubin Neg (Negative); Blood, Urine 150 (Negative); Clarity Clear (Clear); Glucose, Urine (Dipstick) Normal (Negative); Ketone, Urine Negative (Negative); Leukocyte 500 (Negative); Nitrite Negative (Negative); Protein, Urine (Dipstick) Negative (Neg-Trace); Urobilinogen Normal mg/dL (Less than 2)
[2022-12-23 18:21] LABS: Squamous Epithelial 0-3 HPF (0-3)
[2022-12-23 18:22] LABS: Bacteria/HPF Rare-Few HPF (None Seen)
[2022-12-23] MEDS ORDERED: Nicotine 14 MG PATCH ONE (19:44)
[2022-12-23] MEDS: Sodium Chloride 0.9% 1,000 ML IV SCH (23:19)
[2022-12-24 03:47] LABS: #Eosinphils 0.5 10x3/uL (0.0-0.5); %Basophils 0.4 % (0.0-2.0); %Eosinophils 4.7 % (0.0-6.0); %Lymphocytes 20.7 % (18.0-47.0); %Monocytes 10.9 % (0.0-10.0); Hemoglobin 12.5 g/dL (13.5-17.5); Mean Corpuscular HGB CONC 32.9 g/dL (32.0-36.0); Mean Corpuscular Hemoglobin 32.8 pg (27.0-33.0); Mean Corpuscular Volume 99.7 fl (81.2-95.1); Mean Platelet Volume 10.6 fl (7.4-10.4); Platelet Count 125 10x3/uL (150-450); Red Blood Cell (RBC) Count 3.81 10x6/uL (4.32-5.72); White Blood Cell (WBC) Count 9.5 10x3/uL (3.5-10.5)
[2022-12-24 03:50] LABS: Anion Gap 12 mmol/L (10-20); BUN (Urea Nitrogen) 14 mg/dL (8.4-25.7); Calc. Creatinine Clearance 0 mL/min (70-130); Calcium 8.6 mg/dL (7.8-10.44); Carbon Dioxide 28 mmol/L (23-31); Chloride 106 mmol/L (98-107); Estimated GFR 73; Glucose 97 mg/dL (83-110); Potassium 4.9 mmol/L (3.5-5.1); Sodium 141 mmol/L (136-145)
[2022-12-24] MEDS ORDERED: Cefepime 2 GM VIAL ONE (09:47)
[2022-12-24] MEDS: Cefepime 2 GM in Sodium Chloride 0.9% 100 ML IVPB SCH ×2 (09:52→22:35)
[2022-12-24 11:49] VITALS: BMI 46.0
[2022-12-24] MEDS: Nicotine 14 MG PATCH TD SCH ×2 (12:28→17:29)
[2022-12-24] MEDS: Vancomycin 1.5 GRAM/300 ML BAG 1.5 GM in Premix Bag 1 BAG IVPB SCH (12:28)
[2022-12-24] MEDS: Sodium Chloride 0.9% 1,000 ML IV SCH (12:29)
[2022-12-24] MEDS ORDERED: Loratadine 10 MG TAB PO PRN (14:04)
[2022-12-24] MEDS ORDERED: Benzonatate 100 MG CAP PO PRN (14:04)
[2022-12-24] MEDS ORDERED: traMADol HCl 50 MG TAB PO PRN (14:04)
[2022-12-24] MEDS ORDERED: Diclofenac 1% 100 GM GEL TP PRN (14:04)
[2022-12-24] MEDS ORDERED: [UNRECOGNIZED DRUG - OTHER] PO PRN (14:04)
[2022-12-24] MEDS ORDERED: Ascorbic Acid 500 mg Chewable Tablet PO SCH (14:30)
[2022-12-24] MEDS ORDERED: Losartan Potassium 50 MG TAB PO SCH (14:30)
[2022-12-24] MEDS ORDERED: Furosemide 40 MG TAB PO SCH (14:30)
[2022-12-24] MEDS: Mometasone/Formoterol 200/5 60 PUFF INH SCH (19:12)
[2022-12-24] MEDS: Allopurinol 100 MG TAB PO SCH (22:24)
[2022-12-24] MEDS: guaiFENesin 100 MG/5 ML UDCUP PO SCH (22:24)
[2022-12-25] MEDS: Vancomycin 1.5 GRAM/300 ML BAG 1.5 GM in Premix Bag 1 BAG IVPB SCH ×2 (00:34→12:59)
[2022-12-25 05:42] LABS: #Eosinphils 0.4 10x3/uL (0.0-0.5); #Monocytes 0.9 10x3/uL (0.0-1.1); #Neutrophils 4.7 10x3/uL (1.5-8.4); %Basophils 0.5 % (0.0-2.0); %Eosinophils 5.3 % (0.0-6.0); %Lymphocytes 23.5 % (18.0-47.0); %Monocytes 11.1 % (0.0-10.0); %Neutrophils 58.9 % (40.0-75.0); Hemoglobin 11.8 g/dL (13.5-17.5); Mean Corpuscular HGB CONC 32.4 g/dL (32.0-36.0); Mean Corpuscular Hemoglobin 32.3 pg (27.0-33.0); Mean Corpuscular Volume 99.7 fl (81.2-95.1); Mean Platelet Volume 10.9 fl (7.4-10.4); Platelet Count 125 10x3/uL (150-450); RBC Distribution Width 12.8 % (11.5-14.5); Red Blood Cell (RBC) Count 3.65 10x6/uL (4.32-5.72); White Blood Cell (WBC) Count 8.1 10x3/uL (3.5-10.5)
[2022-12-25 06:02] LABS: Anion Gap 12 mmol/L (10-20); BUN (Urea Nitrogen) 15 mg/dL (8.4-25.7); Calc. Creatinine Clearance 120 mL/min (70-130); Calcium 8.6 mg/dL (7.8-10.44); Carbon Dioxide 27 mmol/L (23-31); Chloride 107 mmol/L (98-107); Estimated GFR 69; Glucose 100 mg/dL (83-110); Sodium 141 mmol/L (136-145)
[2022-12-25] MEDS: guaiFENesin 100 MG/5 ML UDCUP PO SCH ×2 (06:10→14:50)
[2022-12-25] MEDS: Levothyroxine Sodium 50 MCG TAB PO SCH (06:10)
[2022-12-25] MEDS: Mometasone/Formoterol 200/5 60 PUFF INH SCH ×2 (08:10→20:11)
[2022-12-25] MEDS ORDERED: SAW PALMETTO 500 MG PO SCH (09:00)
[2022-12-25] MEDS ORDERED: UBIDECARENONE 75 MG PO SCH (09:00)
[2022-12-25] MEDS ORDERED: UBIDECARENONE 30 MG PO SCH (09:00)
[2022-12-25] MEDS ORDERED: KRILL OIL 500 MG PO SCH (09:00)
[2022-12-25] MEDS: Sodium Chloride 0.9% 1,000 ML IV SCH (09:34)
[2022-12-25] MEDS: Furosemide 40 MG TAB PO SCH (09:35)
[2022-12-25] MEDS: Losartan Potassium 50 MG TAB PO SCH (09:35)
[2022-12-25] MEDS: Potassium Chloride 10 MEQ TAB PO SCH (09:35)
[2022-12-25] MEDS: Allopurinol 100 MG TAB PO SCH ×2 (09:35→21:47)
[2022-12-25] MEDS: Ascorbic Acid 500 mg Chewable Tablet PO SCH (09:36)
[2022-12-25] MEDS: Cholecalciferol 1,000 UNITS (25 MCG) TAB PO SCH (09:37)
[2022-12-25] MEDS: Cefepime 2 GM in Sodium Chloride 0.9% 100 ML IVPB SCH ×2 (09:39→21:48)
[2022-12-25] MEDS: Benzonatate 100 MG CAP PO PRN (12:57)
[2022-12-25] MEDS ORDERED: guaiFENesin 100 MG/5 ML UDCUP ONE (14:21)
[2022-12-25] MEDS: Nicotine 14 MG PATCH TD SCH (17:29)
[2022-12-25 23:41] LABS: Vancomycin, Trough 23.4 ug/mL
[2022-12-26] MEDS: Vancomycin HCl 1 GM in Sodium Chloride 0.9% 250 ML 250 ML IVPB SCH ×3 (00:02→23:37)
[2022-12-26 04:17] LABS: #Eosinphils 0.4 10x3/uL (0.0-0.5); #Monocytes 0.8 10x3/uL (0.0-1.1); #Neutrophils 4.7 10x3/uL (1.5-8.4); %Basophils 0.5 % (0.0-2.0); %Eosinophils 5.2 % (0.0-6.0); %Monocytes 10.9 % (0.0-10.0); %Neutrophils 62.9 % (40.0-75.0); Hemoglobin 11.3 g/dL (13.5-17.5); Mean Corpuscular HGB CONC 33.2 g/dL (32.0-36.0); Mean Corpuscular Hemoglobin 32.8 pg (27.0-33.0); Mean Corpuscular Volume 98.6 fl (81.2-95.1); Mean Platelet Volume 10.4 fl (7.4-10.4); Platelet Count 133 10x3/uL (150-450); RBC Distribution Width 12.8 % (11.5-14.5); Red Blood Cell (RBC) Count 3.45 10x6/uL (4.32-5.72); White Blood Cell (WBC) Count 7.5 10x3/uL (3.5-10.5)
[2022-12-26 04:35] LABS: Anion Gap 11 mmol/L (10-20); BUN (Urea Nitrogen) 16 mg/dL (8.4-25.7); Calc. Creatinine Clearance 133 mL/min (70-130); Calcium 8.4 mg/dL (7.8-10.44); Carbon Dioxide 26 mmol/L (23-31); Chloride 106 mmol/L (98-107); Estimated GFR 79; Glucose 111 mg/dL (83-110); Potassium 4.3 mmol/L (3.5-5.1); Sodium 139 mmol/L (136-145)
[2022-12-26] MEDS: Levothyroxine Sodium 50 MCG TAB PO SCH (06:18)
[2022-12-26] MEDS: Mometasone/Formoterol 200/5 60 PUFF INH SCH ×3 (07:25→19:51)
[2022-12-26] MEDS: Allopurinol 100 MG TAB PO SCH ×2 (09:26→21:09)
[2022-12-26] MEDS: Cholecalciferol 1,000 UNITS (25 MCG) TAB PO SCH (09:26)
[2022-12-26] MEDS: Losartan Potassium 50 MG TAB PO SCH (09:26)
[2022-12-26] MEDS: Ascorbic Acid 500 mg Chewable Tablet PO SCH (09:26)
[2022-12-26] MEDS: Furosemide 40 MG TAB PO SCH (09:27)
[2022-12-26] MEDS: Potassium Chloride 10 MEQ TAB PO SCH (09:27)
[2022-12-26] MEDS: Cefepime 2 GM in Sodium Chloride 0.9% 100 ML IVPB SCH ×2 (09:28→21:10)
[2022-12-26] MEDS: Nicotine 14 MG PATCH TD SCH (18:03)
[2022-12-26] MEDS: Benzonatate 100 MG CAP PO PRN (21:10)
[2022-12-27] MEDS: Levothyroxine Sodium 50 MCG TAB PO SCH (05:46)
[2022-12-27 06:28] LABS: Anion Gap 12 mmol/L (10-20); BUN (Urea Nitrogen) 15 mg/dL (8.4-25.7); Calc. Creatinine Clearance 132 mL/min (70-130); Calcium 8.7 mg/dL (7.8-10.44); Carbon Dioxide 26 mmol/L (23-31); Chloride 107 mmol/L (98-107); Estimated GFR 78; Glucose 104 mg/dL (83-110); Potassium 4.8 mmol/L (3.5-5.1); Sodium 140 mmol/L (136-145)
[2022-12-27 07:18] LABS: #Eosinphils 0.4 10x3/uL (0.0-0.5); #Monocytes 0.9 10x3/uL (0.0-1.1); #Neutrophils 4.7 10x3/uL (1.5-8.4); %Basophils 0.5 % (0.0-2.0); %Eosinophils 5.9 % (0.0-6.0); %Lymphocytes 18.1 % (18.0-47.0); %Monocytes 12.3 % (0.0-10.0); %Neutrophils 62.5 % (40.0-75.0); Hemoglobin 11.7 g/dL (13.5-17.5); Mean Corpuscular HGB CONC 33.4 g/dL (32.0-36.0); Mean Corpuscular Hemoglobin 32.8 pg (27.0-33.0); Mean Platelet Volume 10.8 fl (7.4-10.4); Platelet Count 136 10x3/uL (150-450); RBC Distribution Width 12.6 % (11.5-14.5); Red Blood Cell (RBC) Count 3.57 10x6/uL (4.32-5.72); White Blood Cell (WBC) Count 7.5 10x3/uL (3.5-10.5)
[2022-12-27] MEDS: Potassium Chloride 10 MEQ TAB PO SCH (09:24)
[2022-12-27] MEDS: Ascorbic Acid 500 mg Chewable Tablet PO SCH (09:24)
[2022-12-27] MEDS: Losartan Potassium 50 MG TAB PO SCH (09:25)
[2022-12-27] MEDS: Furosemide 40 MG TAB PO SCH (09:25)
[2022-12-27] MEDS: Allopurinol 100 MG TAB PO SCH (09:25)
[2022-12-27] MEDS: Cholecalciferol 1,000 UNITS (25 MCG) TAB PO SCH (09:25)
[2022-12-27] MEDS: Cefepime 2 GM in Sodium Chloride 0.9% 100 ML IVPB SCH (09:26)
[2022-12-27 11:48] LABS: Vancomycin, Trough 21.8 ug/mL
[2022-12-27] MEDS ORDERED: Vancomycin HCl 750 MG in Sodium Chloride 0.9% 250 ML 250 ML IVPB SCH (12:30)
[2022-12-27 12:44] VITALS: BP 113/76; TEMP 97.8
[2022-12-27] MEDS: Vancomycin HCl 1 GM in Sodium Chloride 0.9% 250 ML 250 ML IVPB SCH (13:10)
== END 2022-12-27 14:14 | disposition home or self-care (01) | DRG 872 ==
LOC: CSHERS 12:46 → CSHERHOLD 23:14 → CSHTELE 12-24 10:55 → OBSVTOIN 12-25 13:57
PROVIDERS: ADMIT Family Medicine; ATTEND Internal Medicine
PROC: 5A09457 Assistance with Respiratory Ventilation, 24-96 Consecutive Hours, Continuous Positive Airway Pressure (ICD-10-PCS; 2022-12-24)
PROC: 0VJ80ZZ Inspection of Scrotum and Tunica Vaginalis, Open Approach (ICD-10-PCS; principal; 2022-12-25)
PROC: 3E03329 Introduction of Other Anti-infective into Peripheral Vein, Percutaneous Approach (ICD-10-PCS; 2022-12-25)
DX: A41.9 Sepsis, unspecified organism (principal); C64.1 Malignant neoplasm of right kidney, except renal pelvis; I50.32 Chronic diastolic (congestive) heart failure; Z68.42 Body mass index [BMI] 45.0-49.9, adult; N39.0 Urinary tract infection, site not specified; J44.9 Chronic obstructive pulmonary disease, unspecified; I11.0 Hypertensive heart disease with heart failure; F17.210 Nicotine dependence, cigarettes, uncomplicated; E66.01 Morbid (severe) obesity due to excess calories; G47.33 Obstructive sleep apnea (adult) (pediatric); N49.2 Inflammatory disorders of scrotum; R91.1 Solitary pulmonary nodule; Z79.899 Other long term (current) drug therapy; Z98.890 Other specified postprocedural states; Z79.51 Long term (current) use of inhaled steroids
CPT/HCPCS: 36415; 74177; 80048; 80053; 80202; 81003; 81015; 83605; 83880; 85025; 87040; 87070; 87205; 94640; 94760; 94762; 96365; 96366; 96367; 96372; 96376; 97139; G0378; J0692; J1650; J3370; J3490; J7050; Q9967

== ENCOUNTER 2023-04-23 11:13 | Observation (INO) | payer OTHER ==
[2023-04-23 12:10] LABS: #Eosinphils 0.4 10x3/uL (0.0-0.5); #Monocytes 0.9 10x3/uL (0.0-1.1); #Neutrophils 7.7 10x3/uL (1.5-8.4); %Basophils 0.4 % (0.0-2.0); %Eosinophils 3.5 % (0.0-6.0); %Lymphocytes 13.6 % (18.0-47.0); %Monocytes 8.5 % (0.0-10.0); %Neutrophils 73.4 % (40.0-75.0); Hematocrit 39.5 % (38.8-50.0); Hemoglobin 13.2 g/dL (13.5-17.5); Mean Corpuscular HGB CONC 33.4 g/dL (32.0-36.0); Mean Corpuscular Hemoglobin 32.2 pg (27.0-33.0); Mean Corpuscular Volume 96.3 fl (81.2-95.1); Mean Platelet Volume 10.4 fl (7.4-10.4); Platelet Count 119 10x3/uL (150-450); RBC Distribution Width 12.6 % (11.5-14.5); White Blood Cell (WBC) Count 10.4 10x3/uL (3.5-10.5)
[2023-04-23 12:30] LABS: ALT (SGPT) 11 U/L (8-55); AST (SGOT) 15 U/L (5-34); Albumin 3.3 g/dL (3.4-4.8); Alkaline Phosphatase 92 U/L (40-110); Anion Gap 14 mmol/L (10-20); BUN (Urea Nitrogen) 18 mg/dL (8.4-25.7); Bilirubin, Total 0.7 mg/dL (0.2-1.2); Calc. Creatinine Clearance 0 mL/min (70-130); Calcium 9.2 mg/dL (7.8-10.44); Carbon Dioxide 27 mmol/L (23-31); Chloride 100 mmol/L (98-107); Estimated GFR 70; Glucose 181 mg/dL (83-110); Magnesium 1.9 mg/dL (1.6-2.6); Potassium 4.3 mmol/L (3.5-5.1); Protein, Total 6.3 g/dL (5.8-8.1); Sodium 137 mmol/L (136-145)
[2023-04-23 12:31] LABS: Troponin I Less than 0.010 ng/mL (< 0.028)
[2023-04-23] MEDS ORDERED: Ondansetron ODT 4 MG TAB PO PRN (13:55)
[2023-04-23] MEDS ORDERED: Ondansetron PF 4 MG/2 ML Vial IVP PRN (13:55)
[2023-04-23] MEDS ORDERED: Acetaminophen 325 MG TAB PO PRN (13:55)
[2023-04-23 15:00] LABS: Troponin I Less than 0.010 ng/mL (< 0.028)
[2023-04-23 17:04] VITALS: BMI 46.5
[2023-04-23 17:14] LABS: Troponin I Less than 0.010 ng/mL (< 0.028)
[2023-04-24 04:48] LABS: #Basophils 0.1 10x3/uL (0.0-0.2); #Eosinphils 0.5 10x3/uL (0.0-0.5); #Monocytes 1.3 10x3/uL (0.0-1.1); #Neutrophils 6.8 10x3/uL (1.5-8.4); %Basophils 0.5 % (0.0-2.0); %Eosinophils 4.7 % (0.0-6.0); %Lymphocytes 18.3 % (18.0-47.0); %Monocytes 11.8 % (0.0-10.0); %Neutrophils 63.9 % (40.0-75.0); Hematocrit 36.5 % (38.8-50.0); Hemoglobin 12.3 g/dL (13.5-17.5); Mean Corpuscular HGB CONC 33.7 g/dL (32.0-36.0); Mean Corpuscular Hemoglobin 33.1 pg (27.0-33.0); Mean Corpuscular Volume 98.1 fl (81.2-95.1); Mean Platelet Volume 10.4 fl (7.4-10.4); Platelet Count 123 10x3/uL (150-450); RBC Distribution Width 12.6 % (11.5-14.5); Red Blood Cell (RBC) Count 3.72 10x6/uL (4.32-5.72); White Blood Cell (WBC) Count 10.6 10x3/uL (3.5-10.5)
[2023-04-24 05:07] LABS: Anion Gap 14 mmol/L (10-20); BUN (Urea Nitrogen) 20 mg/dL (8.4-25.7); Calc. Creatinine Clearance 118 mL/min (70-130); Calcium 9.1 mg/dL (7.8-10.44); Carbon Dioxide 28 mmol/L (23-31); Cardiac Risk 3.3 (Less than 4.5); Chloride 100 mmol/L (98-107); Cholesterol 125 mg/dl (< 200 Desired); Estimated GFR 71; Glucose 136 mg/dL (83-110); HDL Cholesterol 38 mg/dL (>60 Neg Risk); LDL Cholesterol, Calculated 69 mg/dL; Potassium 4.3 mmol/L (3.5-5.1); Sodium 138 mmol/L (136-145); Triglycerides 88 mg/dL (Less than 150)
[2023-04-24] MEDS ORDERED: Loratadine 10 MG TAB PO PRN (08:19)
[2023-04-24] MEDS ORDERED: traMADol HCl 50 MG TAB PO PRN (08:19)
[2023-04-24] MEDS ORDERED: Ascorbic Acid 500 mg Chewable Tablet PO SCH (09:00)
[2023-04-24] MEDS ORDERED: Aspirin Chewable 81 MG TAB PO SCH (09:00)
[2023-04-24] MEDS ORDERED: Mometasone/Formoterol 200/5 60 PUFF INH SCH ×2 (10:00→18:30)
[2023-04-24 12:32] VITALS: BP 105/51; TEMP 97.7
[2023-04-24] MEDS ORDERED: Atorvastatin Calcium 40 MG TAB PO SCH (21:00)
[2023-04-25] MEDS ORDERED: Levothyroxine Sodium 50 MCG TAB PO SCH (06:00)
[2023-04-25] MEDS ORDERED: CO Q-10 CAPSULE 50 MG PO SCH (09:00)
[2023-04-25] MEDS ORDERED: Losartan Potassium 50 MG TAB PO SCH (09:00)
== END 2023-04-24 12:30 | disposition home or self-care (01) ==
LOC: CSHERS 11:13 → CSHTELE 13:51
PROVIDERS: ADMIT Family Medicine; ATTEND Family Medicine
DX: R07.9 Chest pain, unspecified (principal); I11.0 Hypertensive heart disease with heart failure; I50.32 Chronic diastolic (congestive) heart failure; J44.9 Chronic obstructive pulmonary disease, unspecified; G47.33 Obstructive sleep apnea (adult) (pediatric); F17.210 Nicotine dependence, cigarettes, uncomplicated; E66.01 Morbid (severe) obesity due to excess calories; Z68.42 Body mass index [BMI] 45.0-49.9, adult; Z88.8 Allergy status to other drugs, medicaments and biological substances; Z88.7 Allergy status to serum and vaccine
CPT/HCPCS: 36415; 71045; 80048; 80053; 80061; 83735; 83880; 84484; 85025; 93005; 93306; 94760; 94762; G0378

== ENCOUNTER 2023-05-01 12:28 | Inpatient (IN) | payer MEDICARE, OTHER ==
[2023-05-01 13:50] LABS: Hematocrit 36.7 % (38.8-50.0); Hemoglobin 12.6 g/dL (13.5-17.5); Mean Corpuscular HGB CONC 34.3 g/dL (32.0-36.0); Mean Corpuscular Hemoglobin 32.8 pg (27.0-33.0); Mean Corpuscular Volume 95.6 fl (81.2-95.1); Mean Platelet Volume 9.9 fl (7.4-10.4); Platelet Count 150 10x3/uL (130-400); RBC Distribution Width 12.6 % (11.5-14.5); Red Blood Cell (RBC) Count 3.84 10x6/uL (4.32-5.72); White Blood Cell (WBC) Count 15.4 10x3/uL (3.5-10.5)
[2023-05-01 13:51] LABS: #Basophils 0.1 10x3/uL (0.0-0.2); #Eosinphils 0.1 10x3/uL (0.0-0.5); #Monocytes 1.7 10x3/uL (0.0-1.1); #Neutrophils 12.1 10x3/uL (1.5-8.4); %Basophils 0.4 % (0.0-2.0); %Eosinophils 0.9 % (0.0-6.0); %Lymphocytes 8.2 % (18.0-47.0); %Monocytes 11.3 % (0.0-10.0); %Neutrophils 78.7 % (40.0-75.0)
[2023-05-01] MEDS ORDERED: Ipratropium/Albuterol 3 ML NEB ONE (14:02)
[2023-05-01] MEDS ORDERED: Magnesium 2 GM/50 ML BAG (IN WATER) ONE (14:08)
[2023-05-01] MEDS ORDERED: methylPREDNISolone Sod Succ/PF 125 MG/2 ML VIAL ONE (14:08)
[2023-05-01 14:11] LABS: Albumin 3.3 g/dL (3.4-4.8); Anion Gap 15 mmol/L (10-20); BUN (Urea Nitrogen) 19 mg/dL (8.4-25.7); Bilirubin, Total 1.1 mg/dL (0.2-1.2); Calc. Creatinine Clearance 0 mL/min (70-130); Calcium 8.4 mg/dL (7.6-10.4); Carbon Dioxide 27 mmol/L (23-31); Chloride 98 mmol/L (98-107); Estimated GFR 71; Globulin 2.4 g/dL (2.4-3.5); Glucose 115 mg/dL (83-110); Potassium 4.7 mmol/L (3.5-5.1); Protein, Total 5.7 g/dL (5.8-8.1); Sodium 135 mmol/L (136-145)
[2023-05-01 14:12] LABS: ALT (SGPT) 12 U/L (8-55); AST (SGOT) 18 U/L (5-34); Alkaline Phosphatase 92 U/L (40-110); Troponin I Less than 0.010 ng/mL (< 0.028)
[2023-05-01 14:40] LABS: SARS-CoV-2 NAA Rapid Test Not Detected (NotDetected)
[2023-05-01] MEDS ORDERED: Iopamidol 370 76% 100 ML VIAL ONE (15:12)
[2023-05-01] MEDS ORDERED: Azithromycin 500 MG VIAL ONE (16:14)
[2023-05-01] MEDS ORDERED: cefTRIAXone (ROCEPHIN) 2 GM VIAL ONE (16:14)
[2023-05-01 23:01] VITALS: BMI 46.5
[2023-05-01] MEDS ORDERED: Ipratropium/Albuterol 3 ML NEB NEB PRN (23:08)
[2023-05-01] MEDS ORDERED: Loratadine 10 MG TAB PO PRN (23:09)
[2023-05-01] MEDS: methylPREDNISolone Sod Succ 40 MG VIAL IVP SCH (23:31)
[2023-05-01] MEDS: Benzonatate 100 MG CAP PO PRN (23:41)
[2023-05-01] MEDS: Ipratropium/Albuterol 3 ML NEB NEB SCH (23:52)
[2023-05-02] MEDS: Levothyroxine Sodium 50 MCG TAB PO SCH (05:34)
[2023-05-02] MEDS: methylPREDNISolone Sod Succ 40 MG VIAL IVP SCH ×3 (05:34→17:05)
[2023-05-02] MEDS ORDERED: HYDROcodone/Acetaminophen 5/325 mg Tablet PO PRN ×2 (07:58)
[2023-05-02] MEDS ORDERED: Ondansetron PF 4 MG/2 ML Vial IVP PRN (07:58)
[2023-05-02] MEDS ORDERED: Acetaminophen 325 MG TAB PO PRN (07:58)
[2023-05-02] MEDS: Ipratropium/Albuterol 3 ML NEB NEB SCH ×3 (08:00→20:25)
[2023-05-02] MEDS ORDERED: Furosemide 40 MG/4 ML VIAL SLOW IVP SCH (08:00)
[2023-05-02] MEDS: Aspirin Chewable 81 MG TAB PO SCH (08:38)
[2023-05-02] MEDS: Losartan Potassium 50 MG TAB PO SCH (08:38)
[2023-05-02] MEDS: guaiFENesin ER 600 MG TAB PO SCH ×2 (08:38→22:11)
[2023-05-02] MEDS: Mometasone/Formoterol 200/5 60 PUFF INH SCH ×2 (09:16→21:18)
[2023-05-02] MEDS: Benzonatate 100 MG CAP PO PRN ×2 (11:12→22:20)
[2023-05-02] MEDS: Furosemide 40 MG/4 ML VIAL SLOW IVP SCH (14:15)
[2023-05-02] MEDS ORDERED: LevoFLOXacin 750 mg/D5W 750 MG in Premix Bag 1 BAG IVPB SCH (16:30)
[2023-05-02] MEDS ORDERED: Atorvastatin Calcium 40 MG TAB PO SCH (21:00)
[2023-05-03] MEDS: methylPREDNISolone Sod Succ 40 MG VIAL IVP SCH ×3 (00:25→11:12)
[2023-05-03] MEDS: Ipratropium/Albuterol 3 ML NEB NEB SCH ×3 (01:00→12:33)
[2023-05-03] MEDS: Levothyroxine Sodium 50 MCG TAB PO SCH (05:15)
[2023-05-03] MEDS: Furosemide 40 MG/4 ML VIAL SLOW IVP SCH (05:15)
[2023-05-03] MEDS: Mometasone/Formoterol 200/5 60 PUFF INH SCH (06:36)
[2023-05-03 07:13] LABS: Anion Gap 16 mmol/L (10-20); BUN (Urea Nitrogen) 35 mg/dL (8.4-25.7); Calc. Creatinine Clearance 108 mL/min (70-130); Calcium 9.3 mg/dL (7.8-10.44); Carbon Dioxide 25 mmol/L (23-31); Chloride 99 mmol/L (98-107); Estimated GFR 62; Glucose 205 mg/dL (83-110); Sodium 135 mmol/L (136-145)
[2023-05-03 07:21] LABS: #Monocytes 0.9 10x3/uL (0.0-1.1); #Neutrophils 18.9 10x3/uL (1.5-8.4); %Basophils 0.2 % (0.0-2.0); %Lymphocytes 4.6 % (18.0-47.0); %Monocytes 4.4 % (0.0-10.0); %Neutrophils 89.6 % (40.0-75.0); Hematocrit 37.5 % (38.8-50.0); Hemoglobin 12.9 g/dL (13.5-17.5); Mean Corpuscular HGB CONC 34.4 g/dL (32.0-36.0); Mean Corpuscular Hemoglobin 33.2 pg (27.0-33.0); Mean Corpuscular Volume 96.4 fl (81.2-95.1); Mean Platelet Volume 10.5 fl (7.4-10.4); Platelet Count 180 10x3/uL (150-450); RBC Distribution Width 12.5 % (11.5-14.5); Red Blood Cell (RBC) Count 3.89 10x6/uL (4.32-5.72); White Blood Cell (WBC) Count 21.1 10x3/uL (3.5-10.5)
[2023-05-03] MEDS: Aspirin Chewable 81 MG TAB PO SCH (07:42)
[2023-05-03] MEDS: Losartan Potassium 50 MG TAB PO SCH (07:42)
[2023-05-03] MEDS: guaiFENesin ER 600 MG TAB PO SCH (07:42)
[2023-05-03] MEDS: Benzonatate 100 MG CAP PO PRN (07:42)
[2023-05-03 12:14] VITALS: TEMP 97.8
[2023-05-03 13:26] VITALS: BP 136/68
== END 2023-05-03 12:53 | disposition home or self-care (01) | DRG 193 ==
LOC: CSHERS 12:28 → CSHTELE 15:36 → OBSVTOIN 05-03 10:31
PROVIDERS: ADMIT Internal Medicine; ATTEND Internal Medicine
DX: J18.9 Pneumonia, unspecified organism (principal); J96.01 Acute respiratory failure with hypoxia; J44.1 Chronic obstructive pulmonary disease with (acute) exacerbation; I50.32 Chronic diastolic (congestive) heart failure; E87.1 Hypo-osmolality and hyponatremia; I11.0 Hypertensive heart disease with heart failure; Z20.822 Contact with and (suspected) exposure to COVID-19; E03.9 Hypothyroidism, unspecified; Z79.899 Other long term (current) drug therapy; Z79.82 Long term (current) use of aspirin; Z87.891 Personal history of nicotine dependence; E88.09 Other disorders of plasma-protein metabolism, not elsewhere classified
CPT/HCPCS: 36415; 71045; 71275; 80048; 80053; 83605; 83735; 83880; 84484; 85025; 87040; 93005; 94640; 94664; 94760; 96365; 96367; 96375; J0456; J0696; J1650; J1940; J1956; J2920; J2930; J3475; J7620; Q9967

== ENCOUNTER 2023-06-20 12:11 | Emergency (ER) | payer OTHER ==
[2023-06-20] MEDS ORDERED: Iopamidol 370 76% 100 ML VIAL ONE (13:17)
[2023-06-20 13:28] LABS: #Eosinphils 0.3 10x3/uL (0.0-0.5); #Neutrophils 8.3 10x3/uL (1.5-8.4); %Basophils 0.4 % (0.0-2.0); %Eosinophils 2.8 % (0.0-6.0); %Lymphocytes 11.4 % (18.0-47.0); %Monocytes 9.2 % (0.0-10.0); %Neutrophils 75.6 % (40.0-75.0); Hematocrit 34.2 % (38.8-50.0); Hemoglobin 11.5 g/dL (13.5-17.5); Mean Corpuscular HGB CONC 33.6 g/dL (32.0-36.0); Mean Corpuscular Hemoglobin 33.3 pg (27.0-33.0); Mean Corpuscular Volume 99.1 fl (81.2-95.1); Mean Platelet Volume 10.5 fl (7.4-10.4); Platelet Count 122 10x3/uL (150-450); RBC Distribution Width 13.4 % (11.5-14.5); Red Blood Cell (RBC) Count 3.45 10x6/uL (4.32-5.72); White Blood Cell (WBC) Count 10.9 10x3/uL (3.5-10.5)
[2023-06-20 13:48] LABS: ALT (SGPT) 8 U/L (8-55); AST (SGOT) 12 U/L (5-34); Alkaline Phosphatase 83 U/L (40-110); Anion Gap 16 mmol/L (10-20); BUN (Urea Nitrogen) 20 mg/dL (8.4-25.7); Bilirubin, Total 0.6 mg/dL (0.2-1.2); Calc. Creatinine Clearance 0 mL/min (70-130); Calcium 8.3 mg/dL (7.8-10.44); Carbon Dioxide 25 mmol/L (23-31); Chloride 104 mmol/L (98-107); Estimated GFR 75; Globulin 2.1 g/dL (2.4-3.5); Glucose 139 mg/dL (83-110); Potassium 4.6 mmol/L (3.5-5.1); Protein, Total 5.1 g/dL (5.8-8.1); Sodium 140 mmol/L (136-145)
[2023-06-20 13:53] LABS: Troponin I Less than 0.010 ng/mL (< 0.028)
[2023-06-20 14:20] LABS: SARS-CoV-2 NAA Rapid Test Not Detected (NotDetected)
[2023-06-20] MEDS ORDERED: Furosemide 40 MG/4 ML VIAL ONE (15:22)
[2023-06-20 16:53] LABS: Bilirubin Neg (Negative); Blood, Urine Negative (Negative); Clarity Clear (Clear); Glucose, Urine (Dipstick) Normal (Negative); Ketone, Urine Negative (Negative); Leukocyte 500 (Negative); Nitrite Negative (Negative); Protein, Urine (Dipstick) 30 mg/dl (Neg-Trace); Specific Gravity, Urine 1.015 (1.005-1.030); Urobilinogen Normal mg/dL (Less than 2)
[2023-06-20 17:02] LABS: Bacteria/HPF 1+ HPF (None Seen); CAUTI Indications for Culture Pelvic or flank pain; RBC/HPF 0-3 HPF (0-3); Squamous Epithelial 0-3 HPF (0-3)
[2023-06-20 17:04] LABS: Urine Culture Reflex Yes Yes
== END 2023-06-20 17:07 | disposition home or self-care (01) ==
LOC: CSHERS 12:11
DX: R06.02 Shortness of breath (principal); E03.9 Hypothyroidism, unspecified; I11.0 Hypertensive heart disease with heart failure; I50.9 Heart failure, unspecified; J44.9 Chronic obstructive pulmonary disease, unspecified; F17.210 Nicotine dependence, cigarettes, uncomplicated; Z20.822 Contact with and (suspected) exposure to COVID-19
CPT/HCPCS: 71045; 71275; 80053; 81001; 83735; 83880; 84484; 85025; 85379; 87086; 93005; 96374; J1940; Q9967

== ENCOUNTER 2023-06-29 15:17 | Inpatient (IN) | payer OTHER ==
[2023-06-29] MEDS ORDERED: Ipratropium/Albuterol 3 ML NEB ONE ×2 (16:01→18:56)
[2023-06-29 16:05] LABS: #Eosinphils 0.1 10x3/uL (0.0-0.5); #Monocytes 1.5 10x3/uL (0.0-1.1); #Neutrophils 11.4 10x3/uL (1.5-8.4); %Basophils 0.3 % (0.0-2.0); %Eosinophils 0.8 % (0.0-6.0); %Lymphocytes 7.2 % (18.0-47.0); %Monocytes 10.3 % (0.0-10.0); %Neutrophils 80.9 % (40.0-75.0); Hematocrit 35.8 % (38.8-50.0); Hemoglobin 11.9 g/dL (13.5-17.5); Mean Corpuscular HGB CONC 33.2 g/dL (32.0-36.0); Mean Corpuscular Hemoglobin 32.9 pg (27.0-33.0); Mean Corpuscular Volume 98.9 fl (81.2-95.1); Mean Platelet Volume 10.4 fl (7.4-10.4); Platelet Count 170 10x3/uL (150-450); RBC Distribution Width 13.5 % (11.5-14.5); Red Blood Cell (RBC) Count 3.62 10x6/uL (4.32-5.72); White Blood Cell (WBC) Count 14.1 10x3/uL (3.5-10.5)
[2023-06-29] MEDS ORDERED: Furosemide 40 MG/4 ML VIAL ONE ×2 (16:10→19:47)
[2023-06-29] MEDS ORDERED: methylPREDNISolone Sod Succ/PF 125 MG/2 ML VIAL ONE (16:10)
[2023-06-29 16:12] LABS: Actual Bicarbonate (HCO3v) 27.7 mEq/L (22-28); Base Excess 1.2 mEq/L (-2 - +2); Calcium, Ionized (venous) 1.09 mmol/L (1.16-1.32); Chloride (VBG) 96 mmol/L (98-106); Hematocrit-VBG 38 % (42.0-52.0); Hemoglobin (Hb) 12.9 g/dL (12.6-17.4); Potassium (VBG) 5.64 mmol/L (3.70-5.30); Puncture Site Other Site; RapidComm Collect By ER NURSE; Sodium 133 mmol/L (133-146); pH (venous) 7.345 (7.32-7.43)
[2023-06-29 16:17] LABS: ALT (SGPT) 9 U/L (8-55); AST (SGOT) 13 U/L (5-34); Albumin 3.3 g/dL (3.4-4.8); Alkaline Phosphatase 77 U/L (40-110); Anion Gap 16 mmol/L (10-20); BUN (Urea Nitrogen) 22 mg/dL (8.4-25.7); Bilirubin, Total 0.8 mg/dL (0.2-1.2); Calc. Creatinine Clearance 0 mL/min (70-130); Calcium 8.6 mg/dL (7.8-10.44); Carbon Dioxide 27 mmol/L (23-31); Chloride 98 mmol/L (98-107); Estimated GFR 59; Globulin 2.3 g/dL (2.4-3.5); Glucose 167 mg/dL (83-110); Potassium 4.5 mmol/L (3.5-5.1); Protein, Total 5.6 g/dL (5.8-8.1); Sodium 136 mmol/L (136-145)
[2023-06-29 16:23] LABS: Troponin I Less than 0.010 ng/mL (< 0.028)
[2023-06-29] MEDS ORDERED: Magnesium Sulfate/D5W 1 GM/100 ML BAG ONE (19:46)
[2023-06-29] MEDS ORDERED: Magnesium 2 GM/50 ML(in water) 2 GM in Premix 1 BAG IVPB SCH (20:00)
[2023-06-29 20:36] LABS: Troponin I Less than 0.010 ng/mL (< 0.028)
[2023-06-29] MEDS ORDERED: Guaifenesin DM 100-10/5 ML UDCUP PO PRN (20:50)
[2023-06-29] MEDS ORDERED: Acetaminophen 325 MG TAB PO PRN (20:50)
[2023-06-29] MEDS ORDERED: Glucagon 1 MG/ML KIT IM PRN (20:50)
[2023-06-29] MEDS ORDERED: Dextrose 5% in Water 1,000 ML IV PRN (20:50)
[2023-06-29] MEDS ORDERED: Senokot S 8.6-50 MG TAB PO PRN (20:50)
[2023-06-29] MEDS ORDERED: Calcium Carbonate 500 MG ChewTAB PO PRN (20:50)
[2023-06-29] MEDS ORDERED: Dextrose 50% Abboject 50 ML SYRINGE SLOW IVP PRN (20:50)
[2023-06-29] MEDS ORDERED: Ipratropium/Albuterol 3 ML NEB NEB PRN (20:56)
[2023-06-30 03:30] LABS: #Monocytes 0.3 10x3/uL (0.0-1.1); #Neutrophils 11.1 10x3/uL (1.5-8.4); %Basophils 0.1 % (0.0-2.0); %Lymphocytes 5.1 % (18.0-47.0); %Monocytes 2.2 % (0.0-10.0); Hematocrit 35.9 % (38.8-50.0); Hemoglobin 11.7 g/dL (13.5-17.5); Mean Corpuscular HGB CONC 32.6 g/dL (32.0-36.0); Mean Corpuscular Hemoglobin 32.2 pg (27.0-33.0); Mean Corpuscular Volume 98.9 fl (81.2-95.1); Mean Platelet Volume 9.8 fl (7.4-10.4); Platelet Count 162 10x3/uL (150-450); RBC Distribution Width 13.2 % (11.5-14.5); Red Blood Cell (RBC) Count 3.63 10x6/uL (4.32-5.72); White Blood Cell (WBC) Count 12.1 10x3/uL (3.5-10.5)
[2023-06-30 03:51] LABS: Anion Gap 18 mmol/L (10-20); BUN (Urea Nitrogen) 23 mg/dL (8.4-25.7); Calc. Creatinine Clearance 0 mL/min (70-130); Calcium 9.5 mg/dL (7.8-10.44); Carbon Dioxide 25 mmol/L (23-31); Chloride 98 mmol/L (98-107); Estimated GFR 54; Glucose 219 mg/dL (83-110); Potassium 5.2 mmol/L (3.5-5.1); Sodium 136 mmol/L (136-145)
[2023-06-30] MEDS ORDERED: Atorvastatin Calcium 40 MG TAB PO SCH (04:15)
[2023-06-30] MEDS ORDERED: Ranolazine 500 MG ER.TAB PO SCH (04:30)
[2023-06-30 05:24] LABS: Bilirubin Neg (Negative); Blood, Urine Negative (Negative); Clarity Clear (Clear); Glucose, Urine (Dipstick) Normal (Negative); Ketone, Urine Negative (Negative); Leukocyte 25 (Negative); Nitrite Negative (Negative); Protein, Urine (Dipstick) Negative (Neg-Trace); Specific Gravity, Urine 1.015 (1.005-1.030); Urobilinogen Normal mg/dL (Less than 2)
[2023-06-30 05:39] LABS: Bacteria/HPF Rare-Few HPF (None Seen); Mucous/LPF Rare LPF (<2+); RBC/HPF 0-3 HPF (0-3); Squamous Epithelial 0-3 HPF (0-3)
[2023-06-30 05:44] LABS: Legionella Urinary Ag Negative (Negative); Strep pneumo Urine Ag NEGATIVE (NEGATIVE)
[2023-06-30] MEDS: methylPREDNISolone Sod Succ 40 MG VIAL IVP SCH ×3 (05:59→21:37)
[2023-06-30] MEDS ORDERED: Furosemide 100 MG/10 ML VIAL SLOW IVP SCH (06:00)
[2023-06-30] MEDS: Azithromycin 500 MG in Sodium Chloride 0.9% 250 ML 250 ML IVPB SCH (06:00)
[2023-06-30] MEDS: Levothyroxine Sodium 50 MCG TAB PO SCH (06:02)
[2023-06-30 06:04] LABS: SARS-CoV-2 NAA Rapid Test Not Detected (NotDetected)
[2023-06-30] MEDS: Ipratropium/Albuterol 3 ML NEB NEB SCH ×3 (07:59→18:50)
[2023-06-30] MEDS: Mometasone/Formoterol 200/5 60 PUFF INH SCH ×3 (08:04→19:10)
[2023-06-30] MEDS: HumaLOG 300 UNITS/3 ML VIAL SC PRN ×3 (08:35→17:58)
[2023-06-30] MEDS: Ascorbic Acid 500 mg Chewable Tablet PO SCH (08:35)
[2023-06-30] MEDS: Aspirin Chewable 81 MG TAB PO SCH (08:35)
[2023-06-30] MEDS: Famotidine/PF 20 mg/2ml Vial SLOW IVP SCH ×2 (08:35→20:44)
[2023-06-30] MEDS ORDERED: UBIDECARENONE 30 MG PO SCH (09:00)
[2023-06-30] MEDS ORDERED: Losartan Potassium 50 MG TAB PO SCH (09:00)
[2023-06-30] MEDS: Furosemide 40 MG/4 ML VIAL SLOW IVP SCH (14:31)
[2023-06-30] MEDS: Ranolazine 500 MG ER.TAB PO SCH (20:44)
[2023-06-30] MEDS: Atorvastatin Calcium 40 MG TAB PO SCH (20:44)
[2023-07-01] MEDS: Ipratropium/Albuterol 3 ML NEB NEB SCH ×4 (02:25→18:55)
[2023-07-01 04:25] LABS: Anion Gap 14 mmol/L (10-20); BUN (Urea Nitrogen) 28 mg/dL (8.4-25.7); Calc. Creatinine Clearance 114 mL/min (70-130); Calcium 8.9 mg/dL (7.8-10.44); Carbon Dioxide 26 mmol/L (23-31); Chloride 102 mmol/L (98-107); Estimated GFR 62; Glucose 185 mg/dL (83-110); Potassium 4.5 mmol/L (3.5-5.1); Sodium 137 mmol/L (136-145)
[2023-07-01 04:29] LABS: #Monocytes 0.9 10x3/uL (0.0-1.1); #Neutrophils 17.5 10x3/uL (1.5-8.4); %Basophils 0.1 % (0.0-2.0); %Lymphocytes 3.7 % (18.0-47.0); %Monocytes 4.5 % (0.0-10.0); Hematocrit 32.1 % (38.8-50.0); Hemoglobin 10.7 g/dL (13.5-17.5); Mean Corpuscular HGB CONC 33.3 g/dL (32.0-36.0); Mean Corpuscular Hemoglobin 32.1 pg (27.0-33.0); Mean Corpuscular Volume 96.4 fl (81.2-95.1); Mean Platelet Volume 9.9 fl (7.4-10.4); Platelet Count 170 10x3/uL (150-450); RBC Distribution Width 13.1 % (11.5-14.5); Red Blood Cell (RBC) Count 3.33 10x6/uL (4.32-5.72); White Blood Cell (WBC) Count 19.2 10x3/uL (3.5-10.5)
[2023-07-01 04:34] LABS: Troponin I Less than 0.010 ng/mL (< 0.028)
[2023-07-01] MEDS: Azithromycin 500 MG in Sodium Chloride 0.9% 250 ML 250 ML IVPB SCH (05:22)
[2023-07-01] MEDS: methylPREDNISolone Sod Succ 40 MG VIAL IVP SCH ×3 (05:23→21:04)
[2023-07-01] MEDS: Levothyroxine Sodium 50 MCG TAB PO SCH (05:23)
[2023-07-01] MEDS: Furosemide 40 MG/4 ML VIAL SLOW IVP SCH ×2 (05:23→14:26)
[2023-07-01] MEDS: Aspirin Chewable 81 MG TAB PO SCH (07:58)
[2023-07-01] MEDS: Famotidine/PF 20 mg/2ml Vial SLOW IVP SCH ×2 (07:58→20:10)
[2023-07-01] MEDS: Ranolazine 500 MG ER.TAB PO SCH ×3 (07:58→20:16)
[2023-07-01] MEDS: Ascorbic Acid 500 mg Chewable Tablet PO SCH (07:58)
[2023-07-01] MEDS: Mometasone/Formoterol 200/5 60 PUFF INH SCH ×2 (08:06→18:55)
[2023-07-01] MEDS: HumaLOG 300 UNITS/3 ML VIAL SC PRN ×3 (11:22→23:34)
[2023-07-01] MEDS: Ondansetron PF 4 MG/2 ML Vial IVP PRN ×2 (17:21→23:22)
[2023-07-01] MEDS: Atorvastatin Calcium 40 MG TAB PO SCH ×2 (20:10→20:17)
[2023-07-02] MEDS: Promethazine HCl 25 MG, Admixture Fee 1 EACH in Sodium Chloride 0.9% 50 ML IVPB SCH ×2 (00:24→01:36)
[2023-07-02] MEDS: Ipratropium/Albuterol 3 ML NEB NEB SCH ×4 (02:00→18:35)
[2023-07-02 03:55] LABS: #Monocytes 0.8 10x3/uL (0.0-1.1); %Basophils 0.1 % (0.0-2.0); %Lymphocytes 3.2 % (18.0-47.0); %Monocytes 3.7 % (0.0-10.0); Hematocrit 37.4 % (38.8-50.0); Hemoglobin 12.6 g/dL (13.5-17.5); Mean Corpuscular HGB CONC 33.7 g/dL (32.0-36.0); Mean Corpuscular Hemoglobin 33.1 pg (27.0-33.0); Mean Corpuscular Volume 98.2 fl (81.2-95.1); Mean Platelet Volume 10.2 fl (7.4-10.4); Platelet Count 194 10x3/uL (150-450); Red Blood Cell (RBC) Count 3.81 10x6/uL (4.32-5.72); White Blood Cell (WBC) Count 22.8 10x3/uL (3.5-10.5)
[2023-07-02 04:03] LABS: Anion Gap 16 mmol/L (10-20); BUN (Urea Nitrogen) 34 mg/dL (8.4-25.7); Calc. Creatinine Clearance 105 mL/min (70-130); Calcium 9.4 mg/dL (7.8-10.44); Carbon Dioxide 28 mmol/L (23-31); Chloride 101 mmol/L (98-107); Estimated GFR 56; Glucose 178 mg/dL (83-110); Potassium 4.9 mmol/L (3.5-5.1); Sodium 140 mmol/L (136-145)
[2023-07-02] MEDS: Furosemide 40 MG/4 ML VIAL SLOW IVP SCH (05:10)
[2023-07-02] MEDS: methylPREDNISolone Sod Succ 40 MG VIAL IVP SCH ×2 (05:10→20:05)
[2023-07-02] MEDS: Azithromycin 500 MG in Sodium Chloride 0.9% 250 ML 250 ML IVPB SCH (05:10)
[2023-07-02] MEDS: Levothyroxine Sodium 50 MCG TAB PO SCH (05:11)
[2023-07-02] MEDS: HumaLOG 300 UNITS/3 ML VIAL SC PRN ×2 (05:19→12:07)
[2023-07-02] MEDS: Ondansetron PF 4 MG/2 ML Vial IVP PRN (06:21)
[2023-07-02] MEDS: Mometasone/Formoterol 200/5 60 PUFF INH SCH ×2 (07:47→18:37)
[2023-07-02] MEDS: Ranolazine 500 MG ER.TAB PO SCH ×2 (08:14→20:05)
[2023-07-02] MEDS: Aspirin Chewable 81 MG TAB PO SCH (08:14)
[2023-07-02] MEDS: Famotidine/PF 20 mg/2ml Vial SLOW IVP SCH ×2 (08:14→20:05)
[2023-07-02] MEDS: Ascorbic Acid 500 mg Chewable Tablet PO SCH (08:14)
[2023-07-02] MEDS ORDERED: Pantoprazole 40 MG VIAL IVP SCH (09:00)
[2023-07-02] MEDS: Bisacodyl 10 MG SUPP PR SCH ×2 (09:33→10:10)
[2023-07-02 09:47] VITALS: BMI 48.8
[2023-07-02] MEDS: Furosemide 40 MG TAB PO SCH (13:03)
[2023-07-02] MEDS: Atorvastatin Calcium 40 MG TAB PO SCH (20:05)
[2023-07-02] MEDS ORDERED: Ipratropium/Albuterol 3 ML NEB ONE (21:40)
[2023-07-03] MEDS: HumaLOG 300 UNITS/3 ML VIAL SC PRN ×4 (00:21→18:37)
[2023-07-03] MEDS: Ipratropium/Albuterol 3 ML NEB NEB SCH ×5 (00:45→23:32)
[2023-07-03 03:58] LABS: #Neutrophils 16.3 10x3/uL (1.5-8.4); %Basophils 0.2 % (0.0-2.0); %Lymphocytes 3.5 % (18.0-47.0); %Monocytes 5.5 % (0.0-10.0); %Neutrophils 89.8 % (40.0-75.0); Hematocrit 36.9 % (38.8-50.0); Hemoglobin 12.2 g/dL (13.5-17.5); Mean Corpuscular HGB CONC 33.1 g/dL (32.0-36.0); Mean Corpuscular Hemoglobin 32.1 pg (27.0-33.0); Mean Corpuscular Volume 97.1 fl (81.2-95.1); Platelet Count 191 10x3/uL (150-450); RBC Distribution Width 13.1 % (11.5-14.5); White Blood Cell (WBC) Count 18.2 10x3/uL (3.5-10.5)
[2023-07-03 04:05] LABS: Anion Gap 15 mmol/L (10-20); BUN (Urea Nitrogen) 38 mg/dL (8.4-25.7); Calc. Creatinine Clearance 105 mL/min (70-130); Calcium 9.1 mg/dL (7.8-10.44); Carbon Dioxide 26 mmol/L (23-31); Chloride 100 mmol/L (98-107); Estimated GFR 56; Glucose 342 mg/dL (83-110); Potassium 4.3 mmol/L (3.5-5.1); Sodium 137 mmol/L (136-145)
[2023-07-03] MEDS: Azithromycin 500 MG in Sodium Chloride 0.9% 250 ML 250 ML IVPB SCH (05:31)
[2023-07-03] MEDS: Levothyroxine Sodium 50 MCG TAB PO SCH (05:31)
[2023-07-03] MEDS: Mometasone/Formoterol 200/5 60 PUFF INH SCH ×2 (06:25→20:18)
[2023-07-03] MEDS: Aspirin Chewable 81 MG TAB PO SCH (08:22)
[2023-07-03] MEDS: Ascorbic Acid 500 mg Chewable Tablet PO SCH (08:22)
[2023-07-03] MEDS: Ranolazine 500 MG ER.TAB PO SCH ×2 (08:22→21:27)
[2023-07-03] MEDS: Famotidine/PF 20 mg/2ml Vial SLOW IVP SCH (08:23)
[2023-07-03] MEDS: methylPREDNISolone Sod Succ 40 MG VIAL IVP SCH (08:23)
[2023-07-03] MEDS: Furosemide 40 MG TAB PO SCH ×2 (08:23→13:57)
[2023-07-03] MEDS: Tamsulosin HCl 0.4 MG CAP PO SCH (08:54)
[2023-07-03] MEDS: Cefdinir 300 MG CAP PO SCH ×2 (08:55→21:27)
[2023-07-03] MEDS ORDERED: Pantoprazole 40 MG VIAL IVP SCH (09:00)
[2023-07-03] MEDS ORDERED: dilTIAZem CD 180 MG CAP PO SCH (13:15)
[2023-07-03] MEDS ORDERED: dilTIAZem 125 MG in Sodium Chloride 0.9% 100 ML IVPB SCH ×2 (15:30→19:03)
[2023-07-03] MEDS: Atorvastatin Calcium 40 MG TAB PO SCH (21:27)
[2023-07-03] MEDS: Apixaban 2.5 MG TAB PO SCH (21:27)
[2023-07-04] MEDS: HumaLOG 300 UNITS/3 ML VIAL SC PRN ×2 (00:52→06:50)
[2023-07-04] MEDS: Levothyroxine Sodium 50 MCG TAB PO SCH (05:57)
[2023-07-04] MEDS: Mometasone/Formoterol 200/5 60 PUFF INH SCH (08:00)
[2023-07-04] MEDS ORDERED: predniSONE 20 MG TAB PO SCH (08:00)
[2023-07-04] MEDS: Ipratropium/Albuterol 3 ML NEB NEB SCH ×2 (08:15→14:29)
[2023-07-04] MEDS: Cefdinir 300 MG CAP PO SCH (08:32)
[2023-07-04] MEDS: Apixaban 2.5 MG TAB PO SCH (08:32)
[2023-07-04] MEDS: Aspirin Chewable 81 MG TAB PO SCH (08:32)
[2023-07-04] MEDS: Ascorbic Acid 500 mg Chewable Tablet PO SCH (08:33)
[2023-07-04] MEDS: Tamsulosin HCl 0.4 MG CAP PO SCH (08:33)
[2023-07-04] MEDS: Ranolazine 500 MG ER.TAB PO SCH (08:33)
[2023-07-04] MEDS: Furosemide 40 MG TAB PO SCH (08:34)
[2023-07-04] MEDS ORDERED: dilTIAZem CD 180 MG CAP PO SCH (09:00)
[2023-07-04 11:37] VITALS: BP 140/64; TEMP 98.1
== END 2023-07-04 15:53 | disposition home or self-care (01) | DRG 291 ==
LOC: CSHERS 15:17 → CSHIMCU 20:50 → UNDOADMIN 06-30 03:50 → CSHIMCU 06-30 03:50 → CSHTELE 07-03 09:51
PROVIDERS: ADMIT Student in an Organized Health Care Education/Training Program; ATTEND Family Medicine
PROC: 4A043R1 Measurement of Venous Saturation, Peripheral, Percutaneous Approach (ICD-10-PCS; principal; 2023-06-29)
PROC: 5A09457 Assistance with Respiratory Ventilation, 24-96 Consecutive Hours, Continuous Positive Airway Pressure (ICD-10-PCS; 2023-06-30)
DX: I11.0 Hypertensive heart disease with heart failure (principal); I50.43 Acute on chronic combined systolic (congestive) and diastolic (congestive) heart failure; J96.21 Acute and chronic respiratory failure with hypoxia; J96.22 Acute and chronic respiratory failure with hypercapnia; J44.1 Chronic obstructive pulmonary disease with (acute) exacerbation; R65.10 Systemic inflammatory response syndrome (SIRS) of non-infectious origin without acute organ dysfunction; N17.9 Acute kidney failure, unspecified; I48.92 Unspecified atrial flutter; D72.829 Elevated white blood cell count, unspecified; I89.0 Lymphedema, not elsewhere classified; Z20.822 Contact with and (suspected) exposure to COVID-19; I48.0 Paroxysmal atrial fibrillation; E66.01 Morbid (severe) obesity due to excess calories; M19.90 Unspecified osteoarthritis, unspecified site; E78.5 Hyperlipidemia, unspecified; G47.33 Obstructive sleep apnea (adult) (pediatric); Z79.899 Other long term (current) drug therapy; Z79.82 Long term (current) use of aspirin; Z88.8 Allergy status to other drugs, medicaments and biological substances; Z79.890 Hormone replacement therapy; Z80.9 Family history of malignant neoplasm, unspecified; Z82.49 Family history of ischemic heart disease and other diseases of the circulatory system; Z98.890 Other specified postprocedural states; Z87.891 Personal history of nicotine dependence
CPT/HCPCS: 36415; 36416; 71045; 80048; 80053; 81001; 82805; 83735; 83880; 84484; 85025; 87070; 87205; 87449; 87899; 93005; 93010; 93970; 94640; 94660; 94664; 94667; 94760; 94762; 94799; 96365; 96375; 96376; 97139; C9113; J0456; J1650; J1815; J1940; J2405; J2550; J2920; J2930; J3475; J3490; J7050; J7512; J7620; S0028

== ENCOUNTER 2023-07-27 14:04 | Emergency (ER) | payer OTHER, MEDICARE ==
[2023-07-27 15:22] LABS: ALT (SGPT) 12 U/L (8-55); AST (SGOT) 13 U/L (5-34); Albumin 3.2 g/dL (3.4-4.8); Alkaline Phosphatase 90 U/L (40-110); Anion Gap 15 mmol/L (10-20); BUN (Urea Nitrogen) 15 mg/dL (8.4-25.7); Bilirubin, Total 0.9 mg/dL (0.2-1.2); Calc. Creatinine Clearance 0 mL/min (70-130); Calcium 9.3 mg/dL (7.8-10.44); Carbon Dioxide 29 mmol/L (23-31); Chloride 104 mmol/L (98-107); Estimated GFR 70; Globulin 2.5 g/dL (2.4-3.5); Glucose 117 mg/dL (83-110); Hematocrit 36.9 % (38.8-50.0); Hemoglobin 12.1 g/dL (13.5-17.5); Mean Corpuscular HGB CONC 32.8 g/dL (32.0-36.0); Mean Corpuscular Hemoglobin 32.5 pg (27.0-33.0); Mean Corpuscular Volume 99.2 fl (81.2-95.1); Platelet Count 147 10x3/uL (150-450); Protein, Total 5.7 g/dL (5.8-8.1); RBC Distribution Width 13.3 % (11.5-14.5); Red Blood Cell (RBC) Count 3.72 10x6/uL (4.32-5.72); Sodium 143 mmol/L (136-145)
[2023-07-27 15:26] LABS: #Eosinphils 0.4 10x3/uL (0.0-0.5); #Neutrophils 6.2 10x3/uL (1.5-8.4); %Basophils 0.3 % (0.0-2.0); %Lymphocytes 15.4 % (18.0-47.0); %Monocytes 11.5 % (0.0-10.0); %Neutrophils 68.2 % (40.0-75.0)
[2023-07-27] MEDS ORDERED: Furosemide 100 MG/10 ML VIAL ONE (16:45)
[2023-07-27 17:03] LABS: Troponin I Less than 0.010 ng/mL (< 0.028)
[2023-07-27 17:54] LABS: Bilirubin Neg (Negative); Blood, Urine Negative (Negative); Clarity Clear (Clear); Glucose, Urine (Dipstick) Normal (Negative); Ketone, Urine Negative (Negative); Leukocyte 100 (Negative); Nitrite Negative (Negative); Protein, Urine (Dipstick) Negative (Neg-Trace); Urobilinogen Normal mg/dL (Less than 2)
[2023-07-27 18:15] LABS: CAUTI Indications for Culture Dysuria,urgency,freq; RBC/HPF 0-3 HPF (0-3); Squamous Epithelial 0-3 HPF (0-3)
[2023-07-27 18:16] LABS: Bacteria/HPF Rare-Few HPF (None Seen); Transitional Epithelial 0-3 HPF (None Seen)
[2023-07-27 18:18] LABS: Urine Culture Reflex Yes Yes
[2023-07-27] MEDS ORDERED: Cefepime 2 GM VIAL ONE (18:41)
[2023-07-27] MEDS ORDERED: Vancomycin 1 GM VIAL ONE (20:11)
== END 2023-07-28 01:27 | disposition admitted as inpatient to this hospital (09) ==
LOC: CSHERS 14:04
DX: L03.115 Cellulitis of right lower limb (principal); N39.0 Urinary tract infection, site not specified; I11.9 Hypertensive heart disease without heart failure; I50.9 Heart failure, unspecified; J44.9 Chronic obstructive pulmonary disease, unspecified; Z79.899 Other long term (current) drug therapy; Z87.891 Personal history of nicotine dependence
CPT/HCPCS: 36415; 71045; 80053; 81001; 83605; 83880; 84484; 85025; 87040; 87086; 93005; 96374; 96375; J0692; J1940; J3370

== ENCOUNTER 2023-09-19 15:33 | Inpatient (IN) | payer OTHER ==
[2023-09-19] MEDS ORDERED: Morphine 4 MG/ML VIAL ONE (16:19)
[2023-09-19] MEDS ORDERED: Ondansetron PF 4 MG/2 ML Vial ONE (16:19)
[2023-09-19 16:42] LABS: #Basophils 0.1 10x3/uL (0.0-0.2); #Eosinphils 0.2 10x3/uL (0.0-0.5); #Monocytes 1.1 10x3/uL (0.0-1.1); #Neutrophils 8.7 10x3/uL (1.5-8.4); %Basophils 0.5 % (0.0-2.0); %Eosinophils 1.8 % (0.0-6.0); %Lymphocytes 16.9 % (18.0-47.0); %Monocytes 9.2 % (0.0-10.0); %Neutrophils 71.3 % (40.0-75.0); Hematocrit 38.1 % (38.8-50.0); Hemoglobin 13.2 g/dL (13.5-17.5); Mean Corpuscular HGB CONC 34.6 g/dL (32.0-36.0); Mean Corpuscular Hemoglobin 32.8 pg (27.0-33.0); Mean Corpuscular Volume 94.8 fl (81.2-95.1); Mean Platelet Volume 10.7 fl (7.4-10.4); Platelet Count 161 10x3/uL (150-450); Red Blood Cell (RBC) Count 4.02 10x6/uL (4.32-5.72); White Blood Cell (WBC) Count 12.1 10x3/uL (3.5-10.5)
[2023-09-19 17:53] LABS: ALT (SGPT) 13 U/L (8-55); AST (SGOT) 16 U/L (5-34); Albumin 3.5 g/dL (3.4-4.8); Alkaline Phosphatase 87 U/L (40-110); Anion Gap 13 mmol/L (10-20); BUN (Urea Nitrogen) 18 mg/dL (8.4-25.7); Bilirubin, Total 0.8 mg/dL (0.2-1.2); Calc. Creatinine Clearance 0 mL/min (70-130); Calcium 9.8 mg/dL (7.8-10.44); Carbon Dioxide 26 mmol/L (23-31); Chloride 98 mmol/L (98-107); Estimated GFR 69; Globulin 2.7 g/dL (2.4-3.5); Glucose 128 mg/dL (83-110); Potassium 4.9 mmol/L (3.5-5.1); Protein, Total 6.2 g/dL (5.8-8.1); Sodium 132 mmol/L (136-145)
[2023-09-19] MEDS ORDERED: Ondansetron ODT 4 MG TAB PO PRN (20:37)
[2023-09-19] MEDS ORDERED: Ondansetron PF 4 MG/2 ML Vial IVP PRN (20:37)
[2023-09-19] MEDS ORDERED: Senokot S 8.6-50 MG TAB PO PRN (20:37)
[2023-09-19] MEDS ORDERED: Albuterol 2.5 MG (3 mL) NEB NEB PRN (20:45)
[2023-09-19 20:54] LABS: Bilirubin Neg (Negative); Blood, Urine Negative (Negative); Clarity Clear (Clear); Glucose, Urine (Dipstick) Normal (Negative); Ketone, Urine Negative (Negative); Leukocyte 100 (Negative); Nitrite Negative (Negative); Protein, Urine (Dipstick) 15 mg/dl (Neg-Trace); Urobilinogen Normal mg/dL (Less than 2)
[2023-09-19 21:03] LABS: Magnesium 1.8 mg/dL (1.6-2.6)
[2023-09-19 21:14] LABS: Bacteria/HPF 1+ HPF (None Seen); CAUTI Indications for Culture Pelvic or flank pain; RBC/HPF 0-3 HPF (0-3); Squamous Epithelial 0-3 HPF (0-3)
[2023-09-19 21:16] LABS: Urine Culture Reflex No No
[2023-09-19 21:24] LABS: Lactic Acid 2.6 mmol/L (0.5-2.2)
[2023-09-19] MEDS ORDERED: Lactated Ringer's 1,000 ML IV SCH (22:30)
[2023-09-19] MEDS ORDERED: guaiFENesin 100 MG/5 ML UDCUP PO SCH (22:30)
[2023-09-19] MEDS ORDERED: Apixaban 5 MG TAB PO SCH (22:30)
[2023-09-19] MEDS ORDERED: Mometasone/Formoterol 200/5 60 PUFF INH SCH (22:30)
[2023-09-20] MEDS: Lactated Ringer's 1,000 ML IV SCH ×2 (00:30→15:53)
[2023-09-20] MEDS ORDERED: Magnesium Sulfate/D5W 1 GM in Premix 1 BAG IVPB SCH (02:45)
[2023-09-20 03:31] VITALS: BMI 44.8
[2023-09-20] MEDS: Morphine 4 MG/ML VIAL SLOW IVP PRN ×2 (03:33→22:42)
[2023-09-20 05:27] LABS: #Eosinphils 0.3 10x3/uL (0.0-0.5); #Monocytes 1.1 10x3/uL (0.0-1.1); #Neutrophils 5.8 10x3/uL (1.5-8.4); %Basophils 0.4 % (0.0-2.0); %Lymphocytes 21.4 % (18.0-47.0); %Monocytes 11.9 % (0.0-10.0); Hematocrit 33.4 % (38.8-50.0); Hemoglobin 11.2 g/dL (13.5-17.5); Mean Corpuscular HGB CONC 33.5 g/dL (32.0-36.0); Mean Corpuscular Hemoglobin 32.1 pg (27.0-33.0); Mean Corpuscular Volume 95.7 fl (81.2-95.1); Mean Platelet Volume 10.3 fl (7.4-10.4); Platelet Count 129 10x3/uL (150-450); RBC Distribution Width 14.1 % (11.5-14.5); Red Blood Cell (RBC) Count 3.49 10x6/uL (4.32-5.72); White Blood Cell (WBC) Count 9.3 10x3/uL (3.5-10.5)
[2023-09-20 05:40] LABS: Anion Gap 14 mmol/L (10-20); BUN (Urea Nitrogen) 17 mg/dL (8.4-25.7); Calc. Creatinine Clearance 120 mL/min (70-130); Calcium 9.1 mg/dL (7.8-10.44); Carbon Dioxide 24 mmol/L (23-31); Cardiac Risk 3.3 (Less than 4.5); Chloride 99 mmol/L (98-107); Cholesterol 112 mg/dl (< 200 Desired); Estimated GFR 75; Glucose 136 mg/dL (83-110); HDL Cholesterol 34 mg/dL (>60 Neg Risk); LDL Cholesterol, Calculated 61 mg/dL; Lipase 620 U/L (8-78); Potassium 4.8 mmol/L (3.5-5.1); Sodium 132 mmol/L (136-145); Triglycerides 87 mg/dL (Less than 150)
[2023-09-20] MEDS: guaiFENesin 100 MG/5 ML UDCUP PO SCH ×3 (06:35→21:55)
[2023-09-20] MEDS: Levothyroxine Sodium 50 MCG TAB PO SCH (06:36)
[2023-09-20] MEDS: Mometasone/Formoterol 200/5 60 PUFF INH SCH ×2 (07:15→19:36)
[2023-09-20] MEDS: Apixaban 5 MG TAB PO SCH ×2 (09:13→21:53)
[2023-09-21] MEDS: Lactated Ringer's 1,000 ML IV SCH ×2 (05:08→21:31)
[2023-09-21] MEDS: Levothyroxine Sodium 50 MCG TAB PO SCH (05:08)
[2023-09-21] MEDS: guaiFENesin 100 MG/5 ML UDCUP PO SCH ×3 (05:09→13:27)
[2023-09-21 05:45] LABS: #Eosinphils 0.3 10x3/uL (0.0-0.5); #Monocytes 1.1 10x3/uL (0.0-1.1); #Neutrophils 6.8 10x3/uL (1.5-8.4); %Basophils 0.4 % (0.0-2.0); %Eosinophils 2.4 % (0.0-6.0); %Lymphocytes 19.7 % (18.0-47.0); %Monocytes 10.6 % (0.0-10.0); %Neutrophils 66.2 % (40.0-75.0); Hematocrit 34.1 % (38.8-50.0); Hemoglobin 11.5 g/dL (13.5-17.5); Mean Corpuscular HGB CONC 33.7 g/dL (32.0-36.0); Mean Corpuscular Hemoglobin 32.4 pg (27.0-33.0); Mean Corpuscular Volume 96.1 fl (81.2-95.1); Mean Platelet Volume 10.5 fl (7.4-10.4); Platelet Count 127 10x3/uL (150-450); Red Blood Cell (RBC) Count 3.55 10x6/uL (4.32-5.72); White Blood Cell (WBC) Count 10.3 10x3/uL (3.5-10.5)
[2023-09-21 05:59] LABS: Anion Gap 13 mmol/L (10-20); BUN (Urea Nitrogen) 14 mg/dL (8.4-25.7); Calc. Creatinine Clearance 134 mL/min (70-130); Calcium 9.3 mg/dL (7.8-10.44); Carbon Dioxide 26 mmol/L (23-31); Chloride 101 mmol/L (98-107); Estimated GFR 86; Glucose 108 mg/dL (83-110); Lipase 415 U/L (8-78); Potassium 5.2 mmol/L (3.5-5.1); Sodium 135 mmol/L (136-145)
[2023-09-21] MEDS: Mometasone/Formoterol 200/5 60 PUFF INH SCH ×2 (07:20→19:55)
[2023-09-21] MEDS ORDERED: dilTIAZem CD 180 MG CAP PO SCH (09:00)
[2023-09-21] MEDS: Apixaban 5 MG TAB PO SCH ×2 (09:34→21:30)
[2023-09-21] MEDS: dilTIAZem CD 180 MG CAP PO SCH (09:34)
[2023-09-21] MEDS ORDERED: Morphine 2 MG/ML VIAL SLOW IVP PRN (13:19)
[2023-09-21] MEDS: Morphine 4 MG/ML VIAL SLOW IVP PRN ×2 (13:27→21:29)
[2023-09-22] MEDS: guaiFENesin 100 MG/5 ML UDCUP PO SCH ×3 (03:52→14:46)
[2023-09-22 06:14] LABS: #Eosinphils 0.2 10x3/uL (0.0-0.5); #Monocytes 1.2 10x3/uL (0.0-1.1); #Neutrophils 6.9 10x3/uL (1.5-8.4); %Basophils 0.3 % (0.0-2.0); %Eosinophils 2.3 % (0.0-6.0); %Lymphocytes 16.2 % (18.0-47.0); %Neutrophils 68.7 % (40.0-75.0); Hematocrit 32.4 % (38.8-50.0); Hemoglobin 11.4 g/dL (13.5-17.5); Mean Corpuscular HGB CONC 35.2 g/dL (32.0-36.0); Mean Corpuscular Hemoglobin 33.3 pg (27.0-33.0); Mean Corpuscular Volume 94.7 fl (81.2-95.1); Mean Platelet Volume 10.2 fl (7.4-10.4); Platelet Count 121 10x3/uL (150-450); RBC Distribution Width 13.6 % (11.5-14.5); Red Blood Cell (RBC) Count 3.42 10x6/uL (4.32-5.72)
[2023-09-22 06:26] LABS: ALT (SGPT) 12 U/L (8-55); AST (SGOT) 14 U/L (5-34); Albumin 3.1 g/dL (3.4-4.8); Alkaline Phosphatase 82 U/L (40-110); Anion Gap 11 mmol/L (10-20); BUN (Urea Nitrogen) 12 mg/dL (8.4-25.7); Bilirubin, Total 0.6 mg/dL (0.2-1.2); Calc. Creatinine Clearance 133 mL/min (70-130); Calcium 9.3 mg/dL (7.8-10.44); Carbon Dioxide 28 mmol/L (23-31); Chloride 100 mmol/L (98-107); Estimated GFR 85; Globulin 2.5 g/dL (2.4-3.5); Glucose 125 mg/dL (83-110); Magnesium 1.8 mg/dL (1.6-2.6); Phosphorus 3.1 mg/dL (2.3-4.7); Potassium 4.7 mmol/L (3.5-5.1); Protein, Total 5.6 g/dL (5.8-8.1); Sodium 134 mmol/L (136-145)
[2023-09-22] MEDS: Mometasone/Formoterol 200/5 60 PUFF INH SCH (07:15)
[2023-09-22] MEDS: Levothyroxine Sodium 50 MCG TAB PO SCH (07:23)
[2023-09-22] MEDS: Apixaban 5 MG TAB PO SCH (09:58)
[2023-09-22] MEDS: dilTIAZem CD 180 MG CAP PO SCH (09:58)
[2023-09-22] MEDS ORDERED: Senokot S 8.6-50 MG TAB PO SCH ×2 (15:00→21:00)
[2023-09-22] MEDS ORDERED: Bisacodyl 10 MG SUPP PR SCH (15:00)
[2023-09-22] MEDS ORDERED: Magnesium Citrate 300 ML BOT PO SCH (15:00)
[2023-09-22 16:23] VITALS: BP 98/55; TEMP 97.6
== END 2023-09-22 18:50 | disposition home or self-care (01) | DRG 439 ==
LOC: CSHERS 15:33 → CSHTELE 19:43
PROVIDERS: ADMIT Family Medicine; ATTEND Family Medicine
PROC: 5A09357 Assistance with Respiratory Ventilation, Less than 24 Consecutive Hours, Continuous Positive Airway Pressure (ICD-10-PCS; principal; 2023-09-20)
DX: K85.90 Acute pancreatitis without necrosis or infection, unspecified (principal); E87.20 Acidosis, unspecified; J96.11 Chronic respiratory failure with hypoxia; I50.32 Chronic diastolic (congestive) heart failure; R65.10 Systemic inflammatory response syndrome (SIRS) of non-infectious origin without acute organ dysfunction; Z68.41 Body mass index [BMI] 40.0-44.9, adult; K59.00 Constipation, unspecified; Z88.8 Allergy status to other drugs, medicaments and biological substances; I11.0 Hypertensive heart disease with heart failure; J44.9 Chronic obstructive pulmonary disease, unspecified; Z87.891 Personal history of nicotine dependence; Z79.899 Other long term (current) drug therapy; Z79.01 Long term (current) use of anticoagulants; Z82.49 Family history of ischemic heart disease and other diseases of the circulatory system; I48.0 Paroxysmal atrial fibrillation; G47.33 Obstructive sleep apnea (adult) (pediatric); N28.89 Other specified disorders of kidney and ureter; E03.9 Hypothyroidism, unspecified; E66.01 Morbid (severe) obesity due to excess calories
CPT/HCPCS: 36415; 74177; 80048; 80053; 80061; 81001; 83605; 83690; 83735; 83880; 84100; 85025; 87070; 87076; 87077; 87186; 87205; 93005; 93010; 94664; 94760; 96374; 96375; 97139; J2270; J2405; J3475; J7120; Q9967